=== PATIENT | male | born 1935 | race Caucasian/White ===

== ENCOUNTER → 2016-08-26 | Outpatient (CLI) | payer MEDICARE, BC ==
[2016-08-26 08:17] LABS: APPEARANCE,URINE CLEAR; BILIRUBIN,URINE NEGATIVE (NEGATIVE); GLUCOSE, URINE NEGATIVE (NEGATIVE); KETONES,URINE NEGATIVE (NEGATIVE); LEUKOCYTE ESTERASE,URINE NEGATIVE (NEGATIVE); NITRITE,URINE NEGATIVE (NEGATIVE); PROTEIN,URINE >=500 mg/dL (NEGATIVE); URINE SPECIFIC GRAVITY 1.011; UROBILINOGEN,URINE NEGATIVE mg/dL (<2.0)
[2016-08-26 08:19] LABS: HEMATOCRIT 34.9 % (37.9-51.0); HEMOGLOBIN 11.1 g/dL (13.5-17.0); HGB HCT DIFFERENCE -1.6; MEAN CORPUSCULAR HGB CONC 31.8 g/dL (32.0-36.0); MEAN CORPUSCULAR VOLUME 88 fl (80-97); RED BLOOD COUNT 3.95 10^6/uL (4.35-5.55); RED CELL DISTRIBUTION WIDTH 17.5 % (11.5-14.0); WHITE BLOOD COUNT 4.6 10^3/uL (4.0-10.5)
[2016-08-26 08:47] LABS: ANION GAP 13 (5-19); BLOOD UREA NITROGEN 37 mg/dL (7-20); CALCIUM 8.6 mg/dL (8.4-10.2); CARBON DIOXIDE 23 mmol/L (22-30); CHLORIDE 112 mmol/L (98-107); CREATININE RESULT 2.61 mg/dL (0.52-1.25); GLUCOSE 105 mg/dL (75-110); POTASSIUM 4.3 mmol/L (3.6-5.0)
[2016-08-26 09:23] LABS: BLOOD UREA NITROGEN 37 mg/dL (7-20); CALCIUM 8.6 mg/dL (8.4-10.2); CHLORIDE 112 mmol/L (98-107); CREATININE RESULT 2.61 mg/dL (0.52-1.25); GLUCOSE 105 mg/dL (75-110); POTASSIUM 4.3 mmol/L (3.6-5.0)
[2016-08-26 09:24] LABS: ANION GAP 13 (5-19); CARBON DIOXIDE 23 mmol/L (22-30)
[2016-08-27 11:40] LABS: CREATININE URINE 94.1 mg/dL (Not Estab.)
== END ==
LOC: OD 07:25
PROVIDERS: ATTEND Internal Medicine Cardiovascular Disease
DX: I12.9 Hypertensive chronic kidney disease with stage 1 through stage 4 chronic kidney disease, or unspecified chronic kidney disease (principal); N18.4 Chronic kidney disease, stage 4 (severe); R80.9 Proteinuria, unspecified; E87.5 Hyperkalemia; I48.91 Unspecified atrial fibrillation; Z79.01 Long term (current) use of anticoagulants
CPT/HCPCS: 36415; 80048; 81001; 82570; 84156; 85027

== ENCOUNTER 2016-08-31 05:54 | Inpatient (IN) | payer MEDICARE, BC ==
[2016-08-31 07:10] LABS: ABSOLUTE EOSINOPHILS # (AUTO) 0.1 10^3/uL (0.0-0.6); ABSOLUTE LYMPHOCYTES (AUTO) 0.9 10^3/uL (0.5-4.7); ABSOLUTE MONOCYTES (AUTO) 0.4 10^3/uL (0.1-1.4); ABSOLUTE NEUT (AUTO) 3.5 10^3/uL (1.7-8.2); BASOPHILS % (AUTO) 0.3 % (0-2); EOSINOPHILS % (AUTO) 1.4 % (0-6); HEMATOCRIT 35.2 % (37.9-51.0); HEMOGLOBIN 11.1 g/dL (13.5-17.0); HGB HCT DIFFERENCE -1.9; LYMPHOCYTES % (AUTO) 18.6 % (13-45); MEAN CORPUSCULAR HEMOGLOBIN 28.3 pg (27.0-33.4); MEAN CORPUSCULAR HGB CONC 31.5 g/dL (32.0-36.0); MEAN CORPUSCULAR VOLUME 90 fl (80-97); MONOCYTES % (AUTO) 7.7 % (3-13); RED BLOOD COUNT 3.92 10^6/uL (4.35-5.55); RED CELL DISTRIBUTION WIDTH 18.3 % (11.5-14.0); WHITE BLOOD COUNT 4.9 10^3/uL (4.0-10.5)
[2016-08-31 07:17] LABS: PROTHROMBIN TIME 23.9 SEC (11.4-15.4)
[2016-08-31 07:18] LABS: PARTIAL THROMBOPLASTIN TIME 34.7 SEC (23.5-35.8)
[2016-08-31 07:23] LABS: ALANINE AMINOTRANSFERASE 44 U/L (21-72); ALBUMIN 3.4 g/dL (3.5-5.0); ALKALINE PHOSPHATASE 135 U/L (38-126); ANION GAP 9 (5-19); ASPARTATE AMINO TRANSFERASE 39 U/L (17-59); BILIRUBIN,TOTAL 0.6 mg/dL (0.2-1.3); BLOOD UREA NITROGEN 33 mg/dL (7-20); CARBON DIOXIDE 21 mmol/L (22-30); CHLORIDE 117 mmol/L (98-107); GLUCOSE 101 mg/dL (75-110); POTASSIUM 4.8 mmol/L (3.6-5.0); SODIUM 147.1 mmol/L (137-145); TOTAL PROTEIN 6.4 g/dL (6.3-8.2)
[2016-08-31 07:42] LABS: TROPONIN I 0.057 ng/mL
--- NOTE | 2016-08-31 08:46 | EKG REPORT ---
SEVERITY:- ABNORMAL ECG - ATRIAL FIBRILLATION, V-RATE 88-119 BORDERLINE T ABNORMALITIES, INFERIOR LEADS : Confirmed by: Michi Gregg MD 31-Aug-2016 08:45:06
[2016-08-31] MEDS ORDERED: FUROSEMIDE INJ/PF 40 MG/4 ML SDV IV ONE (08:58)
--- NOTE | 2016-08-31 11:17 | ER Document Report ---
ED General - General Chief Complaint: Shortness Of Breath Stated Complaint: SHORTNESS OF BREATH TRAVEL OUTSIDE OF THE [place] IN LAST 30 DAYS: No - HPI Patient complains to provider of: shortness of breath Notes: Patient coming in for evaluation shortness of breath. Patient has a history of CHF nature fibrillation is on Coumadin. Patient is an ongoing and progressively getting worse over the last week. Denies any fevers chills night sweats productive cough. Patient states approximately one week ago his doctor took him off of his Lasix. Patient states since that time he has gained approximately 8 pounds is having orthopnea nocturnal dyspnea dyspnea on exertion. Patient also has a history of renal insufficiency. - Related Data Allergies/Adverse Reactions: No Known Allergies Allergy (Verified 07/04/16 12:07) Home Medications: Current Home Medications Acetaminophen [Tylenol Extra Strength 500 mg Tablet] 500 mg PO Q8HP PRN [History] Albuterol Sulfate [Proair Respiclick] 1 puff IH Q4HP PRN 08/31/16 [History] Aspirin [Aspirin EC] 81 mg PO DAILY 08/31/16 [History] Cetirizine HCl [Zyrtec 10 mg Tablet] 10 mg PO DAILYP PRN 08/31/16 [History] Cholecalciferol (Vitamin D3) [Vitamin D3 2000 unit Tablet] 2,000 unit PO DAILY 08/31/16 [History] Diphenhydramine HCl [Benadryl 25 mg Capsule] 25 mg PO HSP PRN 08/31/16 [History] Furosemide [Lasix] 40 mg PO DAILY 08/31/16 [History] Nitroglycerin [Nitrostat] 0.4 mg SL Q5MP PRN 08/31/16 [History] [place]-3 Fatty Acids/Fish Oil [Fish Oil 1,000 mg Capsule] 2 each PO DAILY [History] Sodium Bicarbonate [Sodium Bicarbonate 650 mg Tablet] 650 mg PO DAILY 08/31/16 [ History] Warfarin Sodium [Coumadin 2 mg Tablet] 2 mg PO SUTUTHSA@1000 08/31/16 [History] Warfarin Sodium [Coumadin 3 mg Tablet] 3 mg PO MOWEFR@1000 08/31/16 [History] Past Medical History - Social History Smoking Status: Former Smoker Family History: None - Past Medical History Cardiac Medical History: Reports: Hx Atrial Fibrillation, Hx Coronary Artery Disease, Hx Hypertension Denies: Hx Heart Attack Pulmonary Medical History: Reports: Hx COPD, Hx Pneumonia - as a child Denies: Hx Asthma, Hx Bronchitis Neurological Medical History: Denies: Hx Cerebrovascular Accident, Hx Seizures Renal/ Medical History: Denies: Hx Peritoneal Dialysis Musculoskeltal Medical History: Reports Hx Arthritis Past Surgical History: Reports: Hx Appendectomy, Hx Orthopedic Surgery - left shoulder pin placed, left knee surgery - Immunizations Hx Diphtheria, Pertussis, Tetanus Vaccination: No Review of Systems - Review of Systems Constitutional: No symptoms reported EENT: No symptoms reported Cardiovascular: Orthopnea, Dyspnea, Paroxysmal Nocturnal Dysp Respiratory: No symptoms reported Gastrointestinal: No symptoms reported Genitourinary: No symptoms reported Male Genitourinary: No symptoms reported Musculoskeletal: No symptoms reported Skin: No symptoms reported Hematologic/Lymphatic: No symptoms reported Neurological/Psychological: No symptoms reported -: Yes All other systems reviewed and negative Physical Exam - Vital signs Vitals: Resp Pulse Ox 25 H 95 08/31/16 06:01 08/31/16 06:01 Interpretation: Normal - General General appearance: Appears well, Alert - HEENT Head: Normocephalic, Atraumatic Eyes: Normal Pupils: PERRL - Respiratory Respiratory status: No respiratory distress Chest status: Nontender Breath sounds: Rales Chest palpation: Normal - Cardiovascular Rhythm: Regular Heart sounds: Normal auscultation Murmur: No - Abdominal Inspection: Normal Distension: No distension Bowel sounds: Normal Tenderness: Nontender Organomegaly: No organomegaly - Back Back: Normal, Nontender - Extremities General upper extremity: Normal inspection, Nontender, Normal color, Normal ROM , Normal temperature General lower extremity: Normal inspection, Nontender, Edema - Bilateral 2+, Normal color, Normal ROM, Normal temperature, Normal weight bearing. No: Serina' s sign - Neurological Neuro grossly intact: Yes Cognition: Normal Orientation: AAOx4 [place] Coma Scale Eye Opening: Spontaneous [place] Coma Scale Verbal: Oriented [place] Coma Scale Motor: Obeys Commands Ilia Coma Scale Total: 15 Speech: Normal Motor strength normal: LUE, RUE, LLE, RLE Sensory: Normal - Psychological Associated symptoms: Normal affect, Normal mood - Skin Skin Temperature: Warm Skin Moisture: Dry Skin Color: Normal Course - Re-evaluation Re-evalutation: 08/31/16 13:12 Patient's lab work shows normal left leg findings and her baseline much like findings. Patient was given a dose of Lasix had good urinary output a proximal a 500 mL. Upon to been an with patient patient became very tachypnea and did have some mild hypoxia with no oxygen with a saturation of approximately 80%. Patient stated that he did not feel he could go home . Patient will be referred to the hospital service for admission - Vital Signs Vital signs: Temp Pulse Resp BP Pulse Ox 97.5 F 28 H 126/78 H 91 L 08/31/16 11:21 08/31/16 11:01 08/31/16 11:01 08/31/16 11:01 - Laboratory Result Diagrams: 08/31/16 06:54 08/31/16 06:54 Laboratory results interpreted by me: 08/31/16 08/31/16 08/31/16 06:54 06:54 06:54 RBC 3.92 L Hgb 11.1 L Hct 35.2 L MCHC 31.5 L RDW 18.3 H Plt Count 147 L PT 23.9 H Sodium 147.1 H Chloride 117 H Carbon Dioxide 21 L BUN 33 H Creatinine 2.80 H Est GFR ( Amer) 27 L Est GFR (Non-Af Amer) 22 L Alkaline Phosphatase 135 H NT-Pro-B Natriuret Pep Albumin 3.4 L 08/31/16 06:54 RBC Hgb Hct MCHC RDW Plt Count PT Sodium Chloride Carbon Dioxide BUN Creatinine Est GFR ( Amer) Est GFR (Non-Af Amer) Alkaline Phosphatase NT-Pro-B Natriuret Pep 8180 H Albumin Discharge - Discharge Clinical Impression: Peripheral edema CHF exacerbation Qualifiers: Congestive heart failure type: unspecified congestive heart failure type Qualified Code(s): I50.9 - Heart failure, unspecified Condition: Good Disposition: ADMITTED INPATIENT Admitting Provider: Hospitalist Unit Admitted: [facility]
--- NOTE | 2016-08-31 15:04 | PDOC CONSULTATION ---
Consultation Consult Date: 08/31/16 Attending physician:: MIGDALIA ADAMSON Consult reason:: CHF History of Present Illness Admission Date/PCP: 08/31/16 11:15 SHAWN BARNES MD Patient complains of: Shortness of breath and leg edema History of Present Illness: Patient coming in for evaluation shortness of breath. Patient has a history of CHF nature fibrillation is on Coumadin. Patient is an ongoing and progressively getting worse over the last week. Denies any fevers chills night sweats productive cough. Patient states approximately one week ago his doctor took him off of his Lasix. Patient states since that time he has gained approximately 8 pounds is having orthopnea nocturnal dyspnea dyspnea on exertion. Patient also has a history of renal insufficiency. Patient denied any chest pain as such. Patient denied any sustained palpitations, syncope, near syncope. He gives a history of pacemaker placement with battery change out approximately 2 years ago. He denied any recent fever or chills. He denied any productive sputum. This history was reviewed and confirmed. Patient 's at bedside. Past Medical History Cardiac Medical History: Reports: Atrial Fibrillation, Coronary Artery Disease, Hypertension Denies: Myocardial Infarction Pulmonary Medical History: Reports: Chronic Obstructive Pulmonary Disease (COPD) , Pneumonia - as a child Denies: Asthma, Bronchitis Neurological Medical History: Denies: Seizures Musculoskeltal Medical History: Reports: Arthritis Psychiatric Medical History: Reports: Depression Hematology: Denies: Anemia Past Surgical History Past Surgical History: Reports: Appendectomy, Orthopedic Surgery - left shoulder pin placed, left knee surgery, Pacemaker Social History Smoking Status: Former Smoker Cigarettes Packs Per Day: 1 Number of Years Smokin Last Time Smoked: 37 years ago Frequency of Alcohol Use: None Hx Recreational Drug Use: No Drugs: None Hx Prescription Drug Abuse: No - Advance Directive Resuscitation Status: Full Code Family History Family History: None, Reviewed & Not Pertinent Parental Family History Reviewed: Yes Children Family History Reviewed: Yes Sibling(s) Family History Reviewed.: Yes - Negative for premature coronary artery disease or sudden cardiac in the family amongst first degree relatives. Medication/Allergy Home Medications: Acetaminophen [Tylenol Extra Strength 500 mg Tablet] 500 mg PO Q8HP PRN Albuterol Sulfate [Proair Respiclick] 1 puff IH Q4HP PRN 08/31/16 Aspirin [Aspirin EC] 81 mg PO DAILY 08/31/16 Cetirizine HCl [Zyrtec 10 mg Tablet] 10 mg PO DAILYP PRN 08/31/16 Cholecalciferol (Vitamin D3) [Vitamin D3 2000 unit Tablet] 2,000 unit PO DAILY 08/31/16 Diphenhydramine HCl [Benadryl 25 mg Capsule] 25 mg PO HSP PRN 08/31/16 Furosemide [Lasix] 40 mg PO DAILY 08/31/16 Nitroglycerin [Nitrostat] 0.4 mg SL Q5MP PRN 08/31/16 [place]-3 Fatty Acids/Fish Oil [Fish Oil 1,000 mg Capsule] 2 each PO DAILY Sodium Bicarbonate [Sodium Bicarbonate 650 mg Tablet] 650 mg PO DAILY 08/31/16 Warfarin Sodium [Coumadin 2 mg Tablet] 2 mg PO SUTUTHSA@1000 08/31/16 Warfarin Sodium [Coumadin 3 mg Tablet] 3 mg PO MOWEFR@1000 08/31/16 Allergies/Adverse Reactions: No Known Allergies Allergy (Verified 07/04/16 12:07) Review of Systems Review of Systems: Please see history of present illness and past medical history as wall. Constitutional: No fever or chills reported. Head : No recent chronic headaches, recent head injury. Eyes: No recent eye pain, diplopia, redness, discharge, acute visual changes. Ears: No recent chronic ear pain, acute hearing loss, ear discharge. Oral cavity: No recent ulcerations, bleeding, oral cavity discomfort. Neck: No recent acute neck pain reported. Hematologic: No recent easy bruising or bleeding or hematologic malignancy reported. Lymphatic: No recent lymphatic malignancy, chronic lymphadenopathy reported yet Cardiovascular system review: See history of present illness. Increased pedal edema and shortness of breath. Respiratory system review: No recent chronic cough, hemoptysis, blood clots in the lungs reported. Shortness of breath on exertion Gastrointestinal system review: Negative for any recent acute or chronic abdominal pain, hematemesis, melena, recent change in bowel habits. Genitourinary system review: No recent acute or chronic hematuria, flank pain, UTI etc. reported. Skin system review: Negative for any recent abnormal bruising, no rash, no pruritus reported. Neurologic: No prior history of strokes, mini strokes, seizure disorder. Psychologic: No history of major psychosis or depression reported. Musculoskeletal: Minor aches and pains reported. No acute joint swelling reported. Endocrine: No recent polyuria, polydipsia, recent heat or cold intolerance. Physical Exam Vital Signs: Temp Pulse Resp BP Pulse Ox 97.5 F 104 H 18 158/94 H 100 08/31/16 14:09 08/31/16 14:09 08/31/16 14:09 08/31/16 14:09 08/31/16 14:09 Intake & Output 08/30/16 08/31/16 09/01/16 06:59 06:59 06:59 Intake Total 130 Output Total 850 Balance -720 Weight 88.4 kg Exam: GENERAL: well-nourished and in no acute distress. Alert and oriented x3 HEAD: Atraumatic, normocephalic. EYES: Pupils equal round and reactive to light, extraocular movements intact, sclera anicteric, conjunctiva are normal. ENT: TMs normal, nares patent, oropharynx clear without exudates. Moist mucous membranes. No oral ulcerations or bleeding gums noted NECK: supple without lymphadenopathy. Trachea is central. No cervical or axillary lymphadenopathy noted. Carotids are 2+, JVD 10-12 CM LUNGS: Respiration seems nonlabored, no significant accessory muscle action noted. Bibasal a fine crackles noted up to midway up. CHEST: Palpation of the chest wall shows no significant chest wall tenderness. No other significant abnormalities noted. HEART: [place] [employer], No PSH, 1/6 DIANE aortic area, 1/6 priest systolic murmur mitral area, no rubs, no gallops. ABDOMEN: Soft, no significant tenderness appreciated, normoactive bowel sounds. No guarding, no rebound. No rigidity noted . No masses appreciated. EXTREMITIES: Pedal pulses are 1-2+, no calf tenderness noted. No clubbing or cyanosis.2 + pedal edema noted NEUROLOGICAL: Focused neurological exam showed no significant neurologic deficit. Normal speech, no focal weakness appreciated. PSYCH: Normal mood, normal affect. Judgment and insight within normal limits. SKIN: No significant ecchymosis, rash, ulcerations or signs of pruritus noted. MUSCULOSKELETAL EXAM: No significant joint swelling noted. Results EKG Comments: Atrial fibrillation with slightly rapid ventricular response. No acute ST segment changes noted. Impressions: Chest X-Ray 08/31/16 06:41 IMPRESSION: Oral and cardiomegaly with pulmonary vascular congestion. Small bilateral pleural effusions are identified. Other findings as noted above Status: Image reviewed by me - Shows CHF with small bilateral pleural effusion. Pacemaker single-chamber noted on the left side Assessment & Plan - Diagnosis (1) Atrial fibrillation Qualifiers: Qualified Code(s): I48.2 - Chronic atrial fibrillation (2) CHF exacerbation Qualifiers: Qualified Code(s): I50.9 - Heart failure, unspecified (4) CAD (coronary artery disease) Is this a current diagnosis for this admission?: Yes (5) Hypertension Qualifiers: Qualified Code(s): I10 - Essential (primary) hypertension Is this a current diagnosis for this admission?: Yes (6) COPD (chronic obstructive pulmonary disease) Qualifiers: Qualified Code(s): J43.9 - Emphysema, unspecified Is this a current diagnosis for this admission?: Yes (7) Chronic kidney disease Qualifiers: Qualified Code(s): N18.3 - Chronic kidney disease, stage 3 (moderate) Is this a current diagnosis for this admission?: Yes - Notes Notes: Congestive heart failure: Most likely related to fluid overload and diastolic dysfunction. However would need a 2-D echocardiogram to confirm this. Patient seems to have acute on chronic CHF. Patient will benefit from salt and fluid restriction, IV diuretics and optimizing therapy for underlying CHF. Hypertension: Currently blood pressure is satisfactorily controlled. COPD: Currently stable. Continue with current management. Atrial fibrillation: Rate reasonably well controlled. Continue with chronic anticoagulation. Peripheral edema: Mostly related to CHF but patient also seems to have some venous insufficiency. Chronic kidney disease: Patient seems to have at least moderate chronic kidney disease. Patient will benefit from renal ultrasound and possibly nephrology consultation. 2-D echocardiogram shows mild LV systolic dysfunction, RV systolic dysfunction, mild mitral regurgitation, mild aortic incompetence, moderate tricuspid regurgitation with severe pulmonary hypertension. Recommend obtaining ABGs and long-term oxygen therapy if patient can be qualified for it. - Time Time Spent: 30 to 50 Minutes - CODE STATUS was discussed, patient remains full code. Surrogate decision-maker patient's . Multiple medical problems were addressed.More than 50% of the time spent coordinating care, discussing management plans with involved caregivers. Management plans discussed with involved personnels. Medical decision making was of moderate complexity. Medications reviewed and adjusted accordingly: Yes
[2016-08-31] MEDS ORDERED: DIPHENHYDRAMINE HCL 25 MG CAPSULE PO PRN (15:55)
[2016-08-31] MEDS ORDERED: NITROGLYCERIN 0.4 MG/TAB 25 TAB/BOTTLE SL PRN (15:55)
--- NOTE | 2016-08-31 16:14 | XCELERA REPORT ---
[address] [address] Transthoracic Echocardiogram Report Name: LESTER COLEMAN Age: 81 yrs Gender: Male : 1935 Patient Status: Inpatient Patient Location: [id number] Study Date: 08/31/2016 02:33 PM Height: 67 in Weight: 195 lb BSA: 2.0 m2 Procedure: A complete two-dimensional transthoracic echocardiogram was performed (2D, M-mode, spectral and color flow Doppler). The study was technically adequate with some images being suboptimal in quality. Reason For Study: CHF exacerbation Ordering Physician: MIGDALIA ADAMSON Performed By: Tri Miller Interpretation Summary The Ejection Fraction estimate is 45-50% Left ventricular systolic function is mildly reduced. There is mild concentric left ventricular hypertrophy. The left ventricle is grossly normal size. Doppler measurements suggest pseudonormalized left ventricular relaxation, which is associated with grade II/IV or mild to moderate diastolic dysfunction There is mild global hypokinesis of the left ventricle. The right ventricular systolic function is mildly reduced. The right ventricle is mild to moderately dilated. The right ventricle appears to be hypertrophied The right atrium is moderately dilated. The left atrium is severely dilated. There is a mild amount of mitral regurgitation There is no mitral valve stenosis. There is no aortic valve stenosis There is a mild amount of aortic regurgitation There is a moderate amount of tricuspid regurgitation There is servere pulmonary hypertension by echo Best estimated right ventricular systolic pressure is elevated at >60mmHg. Minimal pericardial effusion. The inferior vena cava appeared normal and decreased < 50% with respiration (RAP 10-15 mmHg) MMode/2D Measurements \T\ Calculations RVDd: 4.0 cm LVIDd: 5.2 cm FS: 24.5 % Ao root diam: 3.3 cm IVSd: 1.1 cm LVIDs: 3.9 cm EDV(Teich): LVPWd: 1.0 cm 129.6 ml Ao root area: 8.5 cm2 ESV(Teich): LA dimension: 5.7 cm 67.0 ml EF(Teich): 48.3 % LA A2Cs: LA A4Cs: LA length: 7.0 cmLA Vol Index (BP): 46.4 cm2 40.0 cm2 113.1 ml/m2 LA Volume: 226.3 ml Doppler Measurements \T\ Calculations MV E max smith: MV P1/2t max smith: Ao V2 max: AI max smith: 91.4 cm/sec 90.9 cm/sec 109.2 cm/sec 431.6 cm/sec MV A max smith: MV P1/2t: 36.3 msec Ao max PG: AI max P.3 cm/sec MVA(P1/2t): 6.1 cm2 4.8 mmHg 74.5 mmHg MV E/A: 1.5 MV dec slope: AI dec slope: 734.3 cm/sec2 338.8 cm/sec2 MV dec time: AI P1/2t: 0.12 sec 373.2 msec LV V1 max PG: PA V2 max: TR max smith: 2.0 mmHg 59.8 cm/sec 424.3 cm/sec LV V1 max: PA max P.4 mmHg TR max P.6 cm/sec 72.0 mmHg Left Ventricle The left ventricle is grossly normal size. There is mild concentric left ventricular hypertrophy. Left ventricular systolic function is mildly reduced. The Ejection Fraction estimate is 45-50%. Doppler measurements suggest pseudonormalized left ventricular relaxation, which is associated with grade II/IV or mild to moderate diastolic dysfunction. There is mild global hypokinesis of the left ventricle. Right Ventricle The right ventricle is mild to moderately dilated. The right ventricle appears to be hypertrophied. The right ventricular systolic function is mildly reduced. Atria The right atrium is moderately dilated. The left atrium is severely dilated. Interarterial septum not well visualized and not well dopplered. Cannot comment on ASD/PFO presence. Mitral Valve There is mild mitral leaflet calcification. There is no mitral valve stenosis. There is a mild amount of mitral regurgitation. Aortic Valve The aortic valve is grossly normal. There is no aortic valve stenosis. There is a mild amount of aortic regurgitation. Tricuspid Valve The tricuspid valve is not well visualized, but is grossly normal. There is no tricuspid stenosis. There is a moderate amount of tricuspid regurgitation. There is servere pulmonary hypertension by echo. Best estimated right ventricular systolic pressure is elevated at >60mmHg. Pulmonic Valve The pulmonic valve is not well visualized. Great Vessels The aortic root is not well visualized but is probably normal size. The inferior vena cava appeared normal and decreased < 50% with respiration (RAP 10-15 mmHg). Effusions Minimal pericardial effusion. : MIGDALIA ADAMSON > Johanna Vasquez
--- NOTE | 2016-08-31 16:20 | PDOC H&P ---
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 Bridges Patient complains of: Shortness of breath History of Present Illness: Mr. Cormier is a 81-year-old male with a past medical history of chronic atrial fibrillation with chronic anticoagulation with Coumadin and previous history of congestive heart failure. The patient presented to the emergency department with a chief complaint of shortness of breath. Patient has had i an ongoing and progressively getting worse over the last week. Denies any fevers chills night sweats productive cough. Patient states approximately one week ago his doctor took him off of his Lasix. Patient states since that time he has gained approximately 8 pounds is having orthopnea nocturnal dyspnea dyspnea on exertion. Patient also has a history of renal insufficiency. Patient was given a dose of IV Lasix in the emergency department was referred the hospitalist remission and management. The patient states that his been over year since his last echocardiogram. The patient stated at that time he was told it "looked good". The patient stated that his Lasix was discontinued citing that "there is atheroma hard anymore". MEDICATIONS: The medications listed in this document may have been auto- populated from previous contact and may not been verified or reconciled. This may not be an accurate reflection of the patient's home medication(s); however, authors are unable to edit or delete the medications listed in this document as "home medications". Past Medical History Cardiac Medical History: Reports: Atrial Fibrillation, Coronary Artery Disease, Hypertension Pulmonary Medical History: Reports: Chronic Obstructive Pulmonary Disease (COPD) Renal/ Medical History: Reports: Chronic Kidney Disease - Stage III Musculoskeltal Medical History: Reports: Arthritis Psychiatric Medical History: Reports: Depression Hematology: Denies: Anemia Past Surgical History Past Surgical History: Reports: Appendectomy, Orthopedic Surgery - left shoulder pin placed, left knee surgery, Pacemaker Social History Information Source: Patient Occupation: Retired Lives with: Spouse/Significant other Smoking Status: Former Smoker Cigarettes Packs Per Day: 1 Number of Years Smokin Last Time Smoked: 37 years ago Frequency of Alcohol Use: None Hx Recreational Drug Use: No Drugs: None Hx Prescription Drug Abuse: No - Advance Directive Resuscitation Status: Full Code Surrogate healthcare decision maker:: Family History Family History: None, Reviewed & Not Pertinent Parental Family History Reviewed: Yes Children Family History Reviewed: Yes Sibling(s) Family History Reviewed.: Yes Medication/Allergy Home Medications: Acetaminophen [Tylenol Extra Strength 500 mg Tablet] 500 mg PO Q8HP PRN Albuterol Sulfate [Proair Respiclick] 1 puff IH Q4HP PRN 08/31/16 Aspirin [Aspirin EC] 81 mg PO DAILY 08/31/16 Cetirizine HCl [Zyrtec 10 mg Tablet] 10 mg PO DAILYP PRN 08/31/16 Cholecalciferol (Vitamin D3) [Vitamin D3 2000 unit Tablet] 2,000 unit PO DAILY 08/31/16 Diphenhydramine HCl [Benadryl 25 mg Capsule] 25 mg PO HSP PRN 08/31/16 Furosemide [Lasix] 40 mg PO DAILY 08/31/16 Nitroglycerin [Nitrostat] 0.4 mg SL Q5MP PRN 08/31/16 Zenda-3 Fatty Acids/Fish Oil [Fish Oil 1,000 mg Capsule] 2 each PO DAILY Sodium Bicarbonate [Sodium Bicarbonate 650 mg Tablet] 650 mg PO DAILY 08/31/16 Warfarin Sodium [Coumadin 2 mg Tablet] 2 mg PO SUTUTHSA@1000 08/31/16 Warfarin Sodium [Coumadin 3 mg Tablet] 3 mg PO MOWEFR@1000 08/31/16 Allergies/Adverse Reactions: No Known Allergies Allergy (Verified 07/04/16 12:07) Review of Systems Constitutional: PRESENT: fatigue, weight gain. ABSENT: chills, fever(s), headache(s), weight loss Eyes: ABSENT: visual disturbances Ears: ABSENT: hearing changes Cardiovascular: PRESENT: dyspnea on exertion, edema, orthropnea. ABSENT: chest pain, palpitations Respiratory: PRESENT: cough. ABSENT: hemoptysis Gastrointestinal: ABSENT: abdominal pain, constipation, diarrhea, hematemesis, hematochezia, nausea, vomiting Genitourinary: ABSENT: dysuria, hematuria Musculoskeletal: ABSENT: joint swelling Integumentary: ABSENT: rash, wounds Neurological: ABSENT: abnormal gait, abnormal speech, confusion, dizziness, focal weakness, syncope Psychiatric: ABSENT: anxiety, depression, homidical ideation, suicidal ideation Endocrine: ABSENT: cold intolerance, heat intolerance, polydipsia, polyuria Hematologic/Lymphatic: ABSENT: easy bleeding, easy bruising Physical Exam Vital Signs: Temp Pulse Resp BP Pulse Ox 97.7 F 104 H 16 146/95 H 100 08/31/16 15:13 08/31/16 15:13 08/31/16 15:13 08/31/16 15:13 08/31/16 15:13 Intake & Output 08/29/16 08/30/16 08/31/16 23:59 23:59 23:59 Intake Total 130 Output Total 850 Balance -720 Weight 88.4 kg General appearance: PRESENT: no acute distress, cooperative, well-developed, well-nourished Head exam: PRESENT: atraumatic, normocephalic Eye exam: PRESENT: conjunctiva pink, EOMI, PERRLA. ABSENT: scleral icterus Ear exam: PRESENT: normal external ear exam Mouth exam: PRESENT: moist, tongue midline Neck exam: ABSENT: carotid bruit, JVD, lymphadenopathy, thyromegaly Respiratory exam: PRESENT: clear to auscultation clemente. ABSENT: rales, rhonchi, wheezes Cardiovascular exam: PRESENT: irregular rhythm, tachycardia. ABSENT: diastolic murmur, rubs, systolic murmur Pulses: PRESENT: normal dorsalis pedis pul Vascular exam: PRESENT: normal capillary refill GI/Abdominal exam: PRESENT: normal bowel sounds, soft. ABSENT: distended, guarding, mass, organolmegaly, rebound, tenderness Rectal exam: PRESENT: deferred Extremities exam: PRESENT: full ROM. ABSENT: calf tenderness, clubbing, pedal edema Neurological exam: PRESENT: alert, awake, oriented to person, oriented to place , oriented to time, oriented to situation, CN II-XII grossly intact. ABSENT: motor sensory deficit Psychiatric exam: PRESENT: appropriate affect, normal mood. ABSENT: homicidal ideation, suicidal ideation Skin exam: PRESENT: dry, intact, warm. ABSENT: cyanosis, rash Results Laboratory Results: Labs- Last Values WBC 4.9 10^3/uL (4.0-10.5) 08/31/16 06:54 RBC 3.92 10^6/uL (4.35-5.55) L 08/31/16 06:54 Hgb 11.1 g/dL (13.5-17.0) L 08/31/16 06:54 Hct 35.2 % (37.9-51.0) L 08/31/16 06:54 MCV 90 fl (80-97) 08/31/16 06:54 MCH 28.3 pg (27.0-33.4) 08/31/16 06:54 MCHC 31.5 g/dL (32.0-36.0) L 08/31/16 06:54 RDW 18.3 % (11.5-14.0) H 08/31/16 06:54 Plt Count 147 10^3/uL (150-450) L 08/31/16 06:54 Seg Neutrophils % 72.0 % (42-78) 08/31/16 06:54 Lymphocytes % 18.6 % (13-45) 08/31/16 06:54 Monocytes % 7.7 % (3-13) 08/31/16 06:54 Eosinophils % 1.4 % (0-6) 08/31/16 06:54 Basophils % 0.3 % (0-2) 08/31/16 06:54 Absolute Neutrophils 3.5 10^3/uL (1.7-8.2) 08/31/16 06:54 Absolute Lymphocytes 0.9 10^3/uL (0.5-4.7) 08/31/16 06:54 Absolute Monocytes 0.4 10^3/uL (0.1-1.4) 08/31/16 06:54 Absolute Eosinophils 0.1 10^3/uL (0.0-0.6) 08/31/16 06:54 Absolute Basophils 0.0 10^3/uL (0.0-0.2) 08/31/16 06:54 PT 23.9 SEC (11.4-15.4) H 08/31/16 06:54 INR 2.04 08/31/16 06:54 APTT 34.7 SEC (23.5-35.8) 08/31/16 06:54 Sodium 147.1 mmol/L (137-145) H 08/31/16 06:54 Potassium 4.8 mmol/L (3.6-5.0) 08/31/16 06:54 Chloride 117 mmol/L (98-107) H 08/31/16 06:54 Carbon Dioxide 21 mmol/L (22-30) L 08/31/16 06:54 Anion Gap 9 (5-19) 08/31/16 06:54 BUN 33 mg/dL (7-20) H 08/31/16 06:54 Creatinine 2.80 mg/dL (0.52-1.25) H 08/31/16 06:54 Est GFR ( Amer) 27 (>60) L 08/31/16 06:54 Est GFR (Non-Af Amer) 22 (>60) L 08/31/16 06:54 Glucose 101 mg/dL (75-110) 08/31/16 06:54 Calcium 9.0 mg/dL (8.4-10.2) 08/31/16 06:54 Total Bilirubin 0.6 mg/dL (0.2-1.3) 08/31/16 06:54 Direct Bilirubin 0.0 mg/dL (0.0-0.3) 08/31/16 06:54 AST 39 U/L (17-59) 08/31/16 06:54 ALT 44 U/L (21-72) 08/31/16 06:54 Alkaline Phosphatase 135 U/L (38-126) H 08/31/16 06:54 Troponin I 0.057 ng/mL 08/31/16 06:54 NT-Pro-B Natriuret Pep 8180 pg/mL (<450) H 08/31/16 06:54 Total Protein 6.4 g/dL (6.3-8.2) 08/31/16 06:54 Albumin 3.4 g/dL (3.5-5.0) L 08/31/16 06:54 Impressions: Chest X-Ray 08/31/16 06:41 IMPRESSION: Oral and cardiomegaly with pulmonary vascular congestion. Small bilateral pleural effusions are identified. Other findings as noted above Assessment & Plan - Diagnosis (1) CHF exacerbation Qualifiers: Congestive heart failure type: unspecified congestive heart failure type Qualified Code(s): I50.9 - Heart failure, unspecified Is this a current diagnosis for this admission?: YesPlan: Will obtain echocardiogram given the dramatic change in the patient's symptoms. Will not classify this until echo is obtained. Will admit the patient to continuous IMCU. Will diurese the patient with IV Lasix. Will repeat chemistries in the a.m. Obtain strict intake and output. Will obtain echocardiogram for further classification. Beta bree will be deferred since the patient is richardson until exacerbation has resolved. (2) Acute and chronic respiratory failure with hypoxia Is this a current diagnosis for this admission?: YesPlan: Will continue supplemental O2. Have a this improved with diuresis. (3) Atrial fibrillation Qualifiers: Atrial fibrillation type: chronic Qualified Code(s): I48.2 - Chronic atrial fibrillation Is this a current diagnosis for this admission?: YesPlan: Will consult cardiology. Continue home medications once reconcilable. Patient' s currently rate controlled. INR is therapeutic. (4) CAD (coronary artery disease) Qualifiers: Coronary Disease-Associated Artery/Lesion type: [place] artery Associated angina: angina presence unspecified Is this a current diagnosis for this admission?: Yes (5) COPD (chronic obstructive pulmonary disease) Qualifiers: Emphysema type: unspecified Is this a current diagnosis for this admission?: YesPlan: Will continue home medications. (6) Chronic kidney disease Qualifiers: Chronic kidney disease stage: stage 3 (moderate) Qualified Code(s): N18.3 - Chronic kidney disease, stage 3 (moderate) Is this a current diagnosis for this admission?: YesPlan: The patient is not far from baseline. (7) Hypertension Qualifiers: Hypertension type: essential hypertension Qualified Code(s): I10 - Essential (primary) hypertension Is this a current diagnosis for this admission?: YesPlan: Will continue home medications. - Time Time Spent: 50 to 70 Minutes Medications reviewed and adjusted accordingly: Yes Anticipated discharge: Home Within: within 48 hours - Inpatient Certification Based on my medical assessment, after consideration of the patient's comorbidities, presenting symptoms, or acuity I expect that the services needed warrant INPATIENT care.: Yes I certify that my determination is in accordance with my understanding of Medicare's requirements for reasonable and necessary INPATIENT services [42 CFR 412.3e].: Yes Medical Necessity: Failure to Improve With Outpatient Therapy, Need Close Monitoring Due to Risk of Patient Decompensation, Need For Continuous Telemetry Monitoring, Risk of Complication if Not Cared For in Hospital Post Hospital Care: D/C or Transfer Summary
[2016-08-31] MEDS ORDERED: ACETAMINOPHEN 325 MG TABLET PO PRN (16:45)
[2016-08-31] MEDS: FUROSEMIDE INJ/PF 40 MG/4 ML SDV IV SCH (17:09)
[2016-08-31] MEDS: WARFARIN SODIUM 3 MG TABLET PO SCH (21:28)
[2016-09-01 04:31] LABS: HEMATOCRIT 33.6 % (37.9-51.0); HEMOGLOBIN 10.6 g/dL (13.5-17.0); HGB HCT DIFFERENCE -1.8; MEAN CORPUSCULAR HGB CONC 31.4 g/dL (32.0-36.0); MEAN CORPUSCULAR VOLUME 89 fl (80-97); RED BLOOD COUNT 3.77 10^6/uL (4.35-5.55); RED CELL DISTRIBUTION WIDTH 18.1 % (11.5-14.0); WHITE BLOOD COUNT 4.6 10^3/uL (4.0-10.5)
[2016-09-01 04:54] LABS: ANION GAP 9 (5-19); BLOOD UREA NITROGEN 38 mg/dL (7-20); CALCIUM 8.7 mg/dL (8.4-10.2); CARBON DIOXIDE 23 mmol/L (22-30); CHLORIDE 112 mmol/L (98-107); CREATININE RESULT 3.01 mg/dL (0.52-1.25); GLUCOSE 96 mg/dL (75-110); POTASSIUM 4.7 mmol/L (3.6-5.0); SODIUM 143.8 mmol/L (137-145)
[2016-09-01] MEDS: FUROSEMIDE INJ/PF 40 MG/4 ML SDV IV SCH ×2 (06:05→18:00)
[2016-09-01] MEDS: ASPIRIN 81 MG TABLET, ENT COATED PO SCH (09:03)
[2016-09-01] MEDS: OMEGA-3 ACID ETHYL ESTERS 1 GM CAPSULE PO SCH (09:03)
[2016-09-01] MEDS: CETIRIZINE 10 MG TABLET PO SCH (09:03)
[2016-09-01] MEDS: CHOLECALCIFEROL (D3) 1,000 UNIT TABLET PO SCH (09:04)
[2016-09-01] MEDS: SODIUM BICARBONATE 650 MG TABLET PO SCH (09:04)
[2016-09-01] MEDS ORDERED: (PENDING PHARMACY ID) (Cholecalciferol (Vitamin D3) [Vitamin D3 2000 Unit Tablet] 2,000 UN PO SCH (10:00)
[2016-09-01] MEDS ORDERED: OMEGA PO SCH (10:00)
[2016-09-01] MEDS ORDERED: FISH OIL PO SCH (10:00)
[2016-09-01] MEDS ORDERED: FATTY ACIDS PO SCH (10:00)
--- NOTE | 2016-09-01 11:23 | PDOC PROGRESS REPORT ---
Subjective Progress Note for:: 09/01/16 Subjective:: The patient is currently sitting up in bed. The patient denies any nausea, vomiting, diarrhea, dizziness, chest pain, heart palpitations, fevers, or chills. Patient states that his shortness of breath has improved however he still experiences with exertion. The patient has remained afebrile. Blood pressures have been in a good range. The patient voices no other concerns at this time. Review of systems: The rest of the review of systems is negative. Physical Exam Vital Signs: Temp Pulse Resp BP Pulse Ox 97.6 F 101 H 18 148/84 H 99 09/01/16 07:30 09/01/16 07:30 09/01/16 07:30 09/01/16 07:30 09/01/16 07:30 Intake & Output 08/30/16 08/31/16 09/01/16 23:59 23:59 23:59 Intake Total 604 370 Output Total 1150 1850 Balance -546 -1480 Weight 88.4 kg 89.8 kg General appearance: PRESENT: no acute distress, well-developed, well-nourished Head exam: PRESENT: atraumatic, normocephalic Eye exam: PRESENT: conjunctiva pink, EOMI, PERRLA. ABSENT: scleral icterus Ear exam: PRESENT: normal external ear exam Mouth exam: PRESENT: moist, tongue midline Neck exam: PRESENT: JVD - JVP noted 3 centimeters above the right clavicle.. ABSENT: carotid bruit, lymphadenopathy, thyromegaly Respiratory exam: PRESENT: crackles - Bilateral basal crackles, symmetrical, unlabored. ABSENT: rales, rhonchi, tachypnea, wheezes Cardiovascular exam: PRESENT: diastolic murmur, irregular rhythm, systolic murmur. ABSENT: rubs Pulses: PRESENT: normal dorsalis pedis pul Vascular exam: PRESENT: normal capillary refill GI/Abdominal exam: PRESENT: normal bowel sounds, soft. ABSENT: distended, guarding, mass, organolmegaly, rebound, tenderness Rectal exam: PRESENT: deferred Extremities exam: PRESENT: full ROM. ABSENT: calf tenderness, clubbing, pedal edema Neurological exam: PRESENT: alert, awake, oriented to person, oriented to place , oriented to time, oriented to situation, CN II-XII grossly intact. ABSENT: motor sensory deficit Psychiatric exam: PRESENT: appropriate affect, normal mood. ABSENT: homicidal ideation, suicidal ideation Skin exam: PRESENT: dry, intact, warm. ABSENT: cyanosis, rash Results Laboratory Results: 09/01/16 03:53 09/01/16 03:53 09/01/16 09/01/16 03:53 03:53 WBC 4.6 RBC 3.77 L Hgb 10.6 L Hct 33.6 L MCV 89 MCH 28.0 MCHC 31.4 L RDW 18.1 H Plt Count 136 L Sodium 143.8 Potassium 4.7 Chloride 112 H Carbon Dioxide 23 Anion Gap 9 BUN 38 H Creatinine 3.01 H Est GFR ( Amer) 24 L Est GFR (Non-Af Amer) 20 L Glucose 96 Calcium 8.7 Magnesium 2.0 Impressions: Chest X-Ray 08/31/16 06:41 IMPRESSION: Oral and cardiomegaly with pulmonary vascular congestion. Small bilateral pleural effusions are identified. 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 Will continue to diurese. beta bree will be deferred since the patient is richardson until exacerbation has resolved. (2) Cor pulmonale Is this a current diagnosis for this admission?: Yes (3) Acute and chronic respiratory failure with hypoxia Is this a current diagnosis for this admission?: YesPlan: Improved continue supplemental O2 (4) Atrial fibrillation Qualifiers: Atrial fibrillation type: chronic Qualified Code(s): I48.2 - Chronic atrial fibrillation Is this a current diagnosis for this admission?: YesPlan: Will consult cardiology. Continue home medications. Patient's currently rate controlled. INR is therapeutic. (5) CAD (coronary artery disease) Qualifiers: Coronary Disease-Associated Artery/Lesion type: [place] artery Associated angina: angina presence unspecified Is this a current diagnosis for this admission?: Yes (6) COPD (chronic obstructive pulmonary disease) Qualifiers: Emphysema type: unspecified Is this a current diagnosis for this admission?: YesPlan: Will continue home medications. (7) Chronic kidney disease Qualifiers: Chronic kidney disease stage: stage 3 (moderate) Qualified Code(s): N18.3 - Chronic kidney disease, stage 3 (moderate) Is this a current diagnosis for this admission?: YesPlan: The patient is not far from baseline. (8) Hypertension Qualifiers: Hypertension type: essential hypertension Qualified Code(s): I10 - Essential (primary) hypertension Is this a current diagnosis for this admission?: YesPlan: Will continue home medications. - Time Time Spent with patient: 25-34 minutes Medications reviewed and adjusted accordingly: Yes Anticipated discharge: Home Within: within 48 hours
[2016-09-01] MEDS ORDERED: LISINOPRIL 10 MG TABLET PO ONE (12:15)
--- NOTE | 2016-09-01 14:35 | PDOC PROGRESS REPORT ---
Subjective Progress Note for:: 09/01/16 Subjective:: Patient seems to be doing better with gradual improvement. Pt is denying any chest arm or neck discomfort. Patient denying any PND, orthopnea. Patient denied any sustained palpitations, dizziness, syncope, near syncope. Patient denying any fever chills. Patient denying any other significant discomfort. Patient is maintaining atrial fibrillation. Heart rate seems reasonably well controlled. Review of systems: Rest review of systems negative. Medications: Medications have been reviewed. Physical Exam Vital Signs: Temp Pulse Resp BP Pulse Ox 99.2 F 108 H 18 152/84 H 94 09/01/16 11:49 09/01/16 13:15 09/01/16 11:49 09/01/16 11:49 09/01/16 11:49 Intake & Output 08/31/16 09/01/16 09/02/16 06:59 06:59 06:59 Intake Total 974 Output Total 3000 Balance -2025 Weight 89.8 kg Exam: GENERAL: well-nourished and in no acute distress. Alert and oriented x3 HEAD: Atraumatic, normocephalic. EYES: Pupils equal round and reactive to light, extraocular movements intact, sclera anicteric, conjunctiva are normal. ENT: TMs normal, nares patent, oropharynx clear without exudates. Moist mucous membranes. No oral ulcerations or bleeding gums noted NECK: supple without lymphadenopathy. Trachea is central. No cervical or axillary lymphadenopathy noted. Carotids are 2+, JVD 8-10 CM LUNGS: Respiration seems nonlabored, no significant accessory muscle action noted. Bibasal fine crackles noted. Few bilateral basal wheezes rales or rhonchi noted. No significant dullness noted on percussion. CHEST: Palpation of the chest wall shows no significant chest wall tenderness. No other significant abnormalities noted. HEART: [place] [employer], No PSH, 1/6 DIANE aortic area, 1/6 priest systolic murmur mitral area, no rubs, no gallops. ABDOMEN: Soft, no significant tenderness appreciated, normoactive bowel sounds. No guarding, no rebound. No rigidity noted . No masses appreciated. EXTREMITIES: Pedal pulses are 1-2+, no calf tenderness noted. No clubbing or cyanosis.1+ pedal edema noted NEUROLOGICAL: Focused neurological exam showed no significant neurologic deficit. Normal speech, no focal weakness appreciated. PSYCH: Normal mood, normal affect. Judgment and insight within normal limits. SKIN: No significant ecchymosis, rash, ulcerations or signs of pruritus noted. MUSCULOSKELETAL EXAM: No significant joint swelling noted. Results Laboratory Results: 09/01/16 03:53 09/01/16 03:53 09/01/16 09/01/16 03:53 03:53 WBC 4.6 RBC 3.77 L Hgb 10.6 L Hct 33.6 L MCV 89 MCH 28.0 MCHC 31.4 L RDW 18.1 H Plt Count 136 L Sodium 143.8 Potassium 4.7 Chloride 112 H Carbon Dioxide 23 Anion Gap 9 BUN 38 H Creatinine 3.01 H Est GFR ( Amer) 24 L Est GFR (Non-Af Amer) 20 L Glucose 96 Calcium 8.7 Magnesium 2.0 Impressions: Chest X-Ray 08/31/16 06:41 IMPRESSION: Oral and cardiomegaly with pulmonary vascular congestion. Small bilateral pleural effusions are identified. Other findings as noted above Assessment & Plan - Diagnosis (1) Atrial fibrillation Qualifiers: Atrial fibrillation type: chronic Qualified Code(s): I48.2 - Chronic atrial fibrillation Is this a current diagnosis for this admission?: Yes (2) CHF exacerbation Qualifiers: Qualified Code(s): I50.9 - Heart failure, unspecified Is this a current diagnosis for this admission?: Yes (4) CAD (coronary artery disease) Qualifiers: Coronary Disease-Associated Artery/Lesion type: [place] artery Associated angina: angina presence unspecified Is this a current diagnosis for this admission?: Yes (5) Hypertension Qualifiers: Hypertension type: essential hypertension Qualified Code(s): I10 - Essential (primary) hypertension Is this a current diagnosis for this admission?: Yes (6) COPD (chronic obstructive pulmonary disease) Qualifiers: Emphysema type: unspecified Is this a current diagnosis for this admission?: Yes (7) Chronic kidney disease Qualifiers: Chronic kidney disease stage: stage 3 (moderate) Qualified Code(s): N18.3 - Chronic kidney disease, stage 3 (moderate) Is this a current diagnosis for this admission?: Yes - Notes Notes: Congestive heart failure: Most likely related to fluid overload and diastolic dysfunction. Probable significant contribution from right heart failure because of severe pulmonary hypertension. 2-D echo results reviewed with the patient. Patient seems to have acute on chronic CHF. Patient will benefit from salt and fluid restriction, IV diuretics and optimizing therapy for underlying CHF. Consider changing to by mouth diuretics. Recommend Demadex in this regard because of underlying chronic kidney disease. Hypertension: Currently blood pressure is satisfactorily controlled. COPD: Currently stable. Continue with current management. Atrial fibrillation: Rate reasonably well controlled. Continue with chronic anticoagulation. Peripheral edema: Mostly related to CHF but patient also seems to have some venous insufficiency. Chronic kidney disease: Patient seems to have at least moderate chronic kidney disease. Patient will benefit from renal ultrasound and possibly nephrology consultation. Patient may benefit from nightly oxygen therapy. We will be happy to qualify patient for this reason in through my office. - Time Time with patient: Greater than 35 minutes - CODE STATUS was discussed, patient remains full code. Surrogate decision-maker unchanged. Multiple medical problems were addressed.More than 50% of the time spent coordinating care, discussing management plans with involved caregivers. Management plans discussed with involved personnels. Medical decision making was of moderate to high complexity.
[2016-09-01] MEDS: WARFARIN SODIUM 3 MG TABLET PO SCH (21:14)
[2016-09-02 05:09] LABS: PROTHROMBIN TIME 25.8 SEC (11.4-15.4)
[2016-09-02 05:27] LABS: ANION GAP 12 (5-19); BLOOD UREA NITROGEN 47 mg/dL (7-20); CALCIUM 8.8 mg/dL (8.4-10.2); CARBON DIOXIDE 21 mmol/L (22-30); CHLORIDE 108 mmol/L (98-107); CREATININE RESULT 2.98 mg/dL (0.52-1.25); GLUCOSE 92 mg/dL (75-110); MAGNESIUM 2.1 mg/dL (1.6-2.3); SODIUM 140.6 mmol/L (137-145)
[2016-09-02] MEDS: FUROSEMIDE INJ/PF 40 MG/4 ML SDV IV SCH (05:41)
[2016-09-02 07:13] LABS: BILIRUBIN,URINE NEGATIVE (NEGATIVE); GLUCOSE, URINE NEGATIVE (NEGATIVE); KETONES,URINE NEGATIVE (NEGATIVE); LEUKOCYTE ESTERASE,URINE NEGATIVE (NEGATIVE); NITRITE,URINE NEGATIVE (NEGATIVE); PROTEIN,URINE 30 mg/dL (NEGATIVE); UROBILINOGEN,URINE NEGATIVE mg/dL (<2.0)
[2016-09-02 07:19] LABS: APPEARANCE,URINE CLEAR; URINE SPECIFIC GRAVITY 1.008
--- NOTE | 2016-09-02 08:23 | EKG REPORT ---
SEVERITY:- ABNORMAL ECG - ATRIAL FIBRILLATION LOW VOLTAGE IN FRONTAL LEADS BORDERLINE T ABNORMALITIES, INFERIOR LEADS : Confirmed by: Johanna Vasquez 02-Sep-2016 08:22:38
[2016-09-02] MEDS: CHOLECALCIFEROL (D3) 1,000 UNIT TABLET PO SCH (09:53)
[2016-09-02] MEDS: ASPIRIN 81 MG TABLET, ENT COATED PO SCH (09:53)
[2016-09-02] MEDS: SODIUM BICARBONATE 650 MG TABLET PO SCH (09:53)
[2016-09-02] MEDS: LISINOPRIL 10 MG TABLET PO SCH (09:54)
[2016-09-02] MEDS: OMEGA-3 ACID ETHYL ESTERS 1 GM CAPSULE PO SCH (09:54)
[2016-09-02] MEDS: CETIRIZINE 10 MG TABLET PO SCH (09:54)
[2016-09-02] MEDS ORDERED: TORSEMIDE 20 MG TABLET PO SCH (10:00)
[2016-09-02] MEDS ORDERED: FLUTICASONE/SALMETEROL DISKUS 250-50 MCG/DOSE IH ONE (12:42)
--- NOTE | 2016-09-02 12:42 | PDOC PROGRESS REPORT ---
Subjective Progress Note for:: 09/02/16 Subjective:: The patient is currently sitting up in bed. The patient denies any nausea, vomiting, diarrhea, dizziness, chest pain, heart palpitations, fevers, or chills. Patient states that his shortness of breath is worse than it was yesterday but still better than when he came in. The patient has remained afebrile. Blood pressures have been in a good range. The patient voices no other concerns at this time. Review of systems: The rest of the review of systems is negative. Physical Exam Vital Signs: Temp Pulse Resp BP Pulse Ox 97.5 F 102 H 20 122/85 100 09/02/16 11:42 09/02/16 11:42 09/02/16 11:42 09/02/16 11:42 09/02/16 11:42 Intake & Output 08/31/16 09/01/16 09/02/16 23:59 23:59 23:59 Intake Total 604 1813 1611 Output Total 1150 2550 2200 Balance -546 -737 -589 Weight 88.4 kg 89.8 kg 88.9 kg General appearance: PRESENT: no acute distress, well-developed, well-nourished Head exam: PRESENT: atraumatic, normocephalic Eye exam: PRESENT: conjunctiva pink, EOMI, PERRLA. ABSENT: scleral icterus Ear exam: PRESENT: normal external ear exam Mouth exam: PRESENT: moist, tongue midline Neck exam: PRESENT: JVD - JVP to the right clavicle.. ABSENT: carotid bruit, lymphadenopathy, thyromegaly Respiratory exam: PRESENT: Diminished, symmetrical, unlabored. ABSENT: rales, rhonchi, tachypnea, wheezes Cardiovascular exam: PRESENT: diastolic murmur, irregular rhythm, systolic murmur. ABSENT: rubs Pulses: PRESENT: normal dorsalis pedis pul Vascular exam: PRESENT: normal capillary refill GI/Abdominal exam: PRESENT: normal bowel sounds, soft. ABSENT: distended, guarding, mass, organolmegaly, rebound, tenderness Rectal exam: PRESENT: deferred Extremities exam: PRESENT: full ROM. ABSENT: calf tenderness, clubbing, pedal edema Neurological exam: PRESENT: alert, awake, oriented to person, oriented to place , oriented to time, oriented to situation, CN II-XII grossly intact. ABSENT: motor sensory deficit Psychiatric exam: PRESENT: appropriate affect, normal mood. ABSENT: homicidal ideation, suicidal ideation Skin exam: PRESENT: dry, intact, warm. ABSENT: cyanosis, rash Results Laboratory Results: 09/01/16 03:53 09/02/16 04:15 09/02/16 09/02/16 04:15 06:38 Sodium 140.6 Potassium 5.0 Chloride 108 H Carbon Dioxide 21 L Anion Gap 12 BUN 47 H Creatinine 2.98 H Est GFR ( Amer) 25 L Est GFR (Non-Af Amer) 20 L Glucose 92 Calcium 8.8 Magnesium 2.1 Urine Color STRAW Urine Appearance CLEAR Urine pH 6.0 Ur Specific [place] 1.008 Urine Protein 30 H Urine Glucose (UA) NEGATIVE Urine Ketones NEGATIVE Urine Blood NEGATIVE Urine Nitrite NEGATIVE Ur Leukocyte Esterase NEGATIVE Urine WBC (Auto) 0 Impressions: Chest X-Ray 09/02/16 00:00 IMPRESSION: COPD. No acute findings. 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 Have transitioned over to oral torsemide. Patient notes increasing shortness of breath overnight will obtain chest x-ray and follow. The patient has been started on home medications as per cardiology. (2) Cor pulmonale Is this a current diagnosis for this admission?: Yes (3) Acute and chronic respiratory failure with hypoxia Is this a current diagnosis for this admission?: YesPlan: Will obtain chest x-ray. Patient most likely has underlying COPD. Will consider inhaler. (4) Atrial fibrillation Qualifiers: Atrial fibrillation type: chronic Qualified Code(s): I48.2 - Chronic atrial fibrillation Is this a current diagnosis for this admission?: YesPlan: Continue home medications. Patient's currently rate controlled. INR is therapeutic. (5) CAD (coronary artery disease) Qualifiers: Coronary Disease-Associated Artery/Lesion type: [place] artery Associated angina: angina presence unspecified Is this a current diagnosis for this admission?: Yes (6) COPD (chronic obstructive pulmonary disease) Qualifiers: Emphysema type: unspecified Is this a current diagnosis for this admission?: YesPlan: Will continue home medications. (7) Chronic kidney disease Qualifiers: Chronic kidney disease stage: stage 4 (severe) Qualified Code(s): N18.4 - Chronic kidney disease, stage 4 (severe) Is this a current diagnosis for this admission?: YesPlan: The patient is not far from baseline. (8) Hypertension Qualifiers: Hypertension type: essential hypertension Qualified Code(s): I10 - Essential (primary) hypertension Is this a current diagnosis for this admission?: YesPlan: Will continue home medications. - Time Time Spent with patient: 25-34 minutes Medications reviewed and adjusted accordingly: Yes Anticipated discharge: Home Within: within 24 hours Disposition: The patient is a full code. Pending patient's symptomatology and diagnostic findings will reevaluate in the a.m.
--- NOTE | 2016-09-02 19:17 | PDOC PROGRESS REPORT ---
Subjective Progress Note for:: 09/02/16 Subjective:: Patient seems to be doing better with significant improvement. Pt is denying any chest arm or neck discomfort. Patient denying any PND, orthopnea. Patient denied any sustained palpitations, dizziness, syncope, near syncope. Patient denying any fever chills. Patient denying any other significant discomfort. Patient is maintaining atrial fibrillation. Heart rate seems reasonably well controlled. Review of systems: Rest review of systems negative. Medications: Medications have been reviewed. Physical Exam Vital Signs: Temp Pulse Resp BP Pulse Ox 97.8 F 96 24 H 116/56 L 98 09/02/16 16:00 09/02/16 16:00 09/02/16 16:00 09/02/16 16:00 09/02/16 16:00 Intake & Output 09/01/16 09/02/16 09/03/16 06:59 06:59 06:59 Intake Total 974 3054 1485 Output Total 3000 2900 1850 Balance -2025 154 -365 Weight 89.8 kg 88.9 kg Exam: GENERAL: well-nourished and in no acute distress. Alert and oriented x3 HEAD: Atraumatic, normocephalic. EYES: Pupils equal round and reactive to light, extraocular movements intact, sclera anicteric, conjunctiva are normal. ENT: TMs normal, nares patent, oropharynx clear without exudates. Moist mucous membranes. No oral ulcerations or bleeding gums noted NECK: supple without lymphadenopathy. Trachea is central. No cervical or axillary lymphadenopathy noted. Carotids are 2+, JVD WNL LUNGS: Respiration seems nonlabored, no significant accessory muscle action noted. Breath sounds clear to auscultation bilaterally and equal noted. No wheezes rales or rhonchi noted. No significant dullness noted on percussion. There has been significant improvement in lung exam finding. CHEST: Palpation of the chest wall shows no significant chest wall tenderness. No other significant abnormalities noted. 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 ABDOMEN: Soft, no significant tenderness appreciated, normoactive bowel sounds. No guarding, no rebound. No rigidity noted . No masses appreciated. EXTREMITIES: Pedal pulses are 1-2+, no calf tenderness noted. No clubbing or cyanosis.trace to 1+ pedal edema noted NEUROLOGICAL: Focused neurological exam showed no significant neurologic deficit. Normal speech, no focal weakness appreciated. PSYCH: Normal mood, normal affect. Judgment and insight within normal limits. SKIN: No significant ecchymosis, rash, ulcerations or signs of pruritus noted. MUSCULOSKELETAL EXAM: No significant joint swelling noted. Results Laboratory Results: 09/01/16 03:53 09/02/16 04:15 09/02/16 09/02/16 04:15 06:38 Sodium 140.6 Potassium 5.0 Chloride 108 H Carbon Dioxide 21 L Anion Gap 12 BUN 47 H Creatinine 2.98 H Est GFR ( Amer) 25 L Est GFR (Non-Af Amer) 20 L Glucose 92 Calcium 8.8 Magnesium 2.1 Urine Color STRAW Urine Appearance CLEAR Urine pH 6.0 Ur Specific [place] 1.008 Urine Protein 30 H Urine Glucose (UA) NEGATIVE Urine Ketones NEGATIVE Urine Blood NEGATIVE Urine Nitrite NEGATIVE Ur Leukocyte Esterase NEGATIVE Urine WBC (Auto) 0 Impressions: Chest X-Ray 09/02/16 00:00 IMPRESSION: COPD. No acute findings. Assessment & Plan - Diagnosis (1) Atrial fibrillation Qualifiers: Atrial fibrillation type: chronic Qualified Code(s): I48.2 - Chronic atrial fibrillation Is this a current diagnosis for this admission?: Yes (2) CHF exacerbation Is this a current diagnosis for this admission?: Yes (4) CAD (coronary artery disease) Qualifiers: Coronary Disease-Associated Artery/Lesion type: [place] artery Associated angina: angina presence unspecified Is this a current diagnosis for this admission?: Yes (5) Hypertension Qualifiers: Hypertension type: essential hypertension Qualified Code(s): I10 - Essential (primary) hypertension Is this a current diagnosis for this admission?: Yes (6) COPD (chronic obstructive pulmonary disease) Qualifiers: Emphysema type: unspecified Is this a current diagnosis for this admission?: Yes (7) Chronic kidney disease Qualifiers: Chronic kidney disease stage: stage 4 (severe) Qualified Code(s): N18.4 - Chronic kidney disease, stage 4 (severe) Is this a current diagnosis for this admission?: Yes - Notes Notes: Congestive heart failure: Most likely related to fluid overload and diastolic dysfunction. Probable significant contribution from right heart failure because of severe pulmonary hypertension. 2-D echo results reviewed with the patient. Patient seems to have acute on chronic CHF. Patient will benefit from salt and fluid restriction, IV diuretics and optimizing therapy for underlying CHF. Consider changing to by mouth diuretics. Recommend Demadex in this regard because of underlying chronic kidney disease. This was discussed with hospitalist. Feel patient is almost ready for discharge and will certainly be ready by tomorrow a.m. Hypertension: Currently blood pressure is satisfactorily controlled. COPD: Currently stable. Continue with current management. Atrial fibrillation: Rate reasonably well controlled. Continue with chronic anticoagulation. Peripheral edema: Mostly related to CHF but patient also seems to have some venous insufficiency. Chronic kidney disease: Patient seems to have at least moderate chronic kidney disease. Patient will benefit from renal ultrasound and possibly nephrology consultation. Patient may benefit from nightly oxygen therapy. We will be happy to qualify patient for this reason in through my office. - Time Time with patient: 15-25 minutes - CODE STATUS was discussed, patient remains full code. Surrogate decision-maker unchanged. Multiple medical problems were addressed.More than 50% of the time spent coordinating care, discussing management plans with involved caregivers. Management plans discussed with involved personnels. Medical decision making was of moderate complexity.
[2016-09-02] MEDS: FLUTICASONE/SALMETEROL DISKUS 250-50 MCG/DOSE IH SCH (21:28)
[2016-09-02] MEDS: WARFARIN SODIUM 3 MG TABLET PO SCH (21:28)
[2016-09-03 05:34] LABS: PROTHROMBIN TIME 25.1 SEC (11.4-15.4)
[2016-09-03 05:41] LABS: ANION GAP 12 (5-19); BLOOD UREA NITROGEN 55 mg/dL (7-20); CARBON DIOXIDE 20 mmol/L (22-30); CHLORIDE 107 mmol/L (98-107); CREATININE RESULT 3.26 mg/dL (0.52-1.25); GLUCOSE 96 mg/dL (75-110); MAGNESIUM 2.2 mg/dL (1.6-2.3); POTASSIUM 4.7 mmol/L (3.6-5.0); SODIUM 139.4 mmol/L (137-145)
[2016-09-03] MEDS: FLUTICASONE/SALMETEROL DISKUS 250-50 MCG/DOSE IH SCH ×2 (09:15→22:18)
[2016-09-03] MEDS: OMEGA-3 ACID ETHYL ESTERS 1 GM CAPSULE PO SCH (09:28)
[2016-09-03] MEDS: CHOLECALCIFEROL (D3) 1,000 UNIT TABLET PO SCH (09:28)
[2016-09-03] MEDS: SODIUM BICARBONATE 650 MG TABLET PO SCH (09:28)
[2016-09-03] MEDS: ASPIRIN 81 MG TABLET, ENT COATED PO SCH (09:29)
[2016-09-03] MEDS: LISINOPRIL 10 MG TABLET PO SCH (09:29)
[2016-09-03] MEDS: CETIRIZINE 10 MG TABLET PO SCH (09:29)
[2016-09-03] MEDS: ALBUTEROL SULFATE HFA (90 MCG/PUFF) 200 PUFF/8.5 GM MDI IH PRN ×3 (09:30→22:18)
--- NOTE | 2016-09-03 12:43 | PDOC PROGRESS REPORT ---
Subjective Progress Note for:: 09/03/16 Subjective:: Patient was seen on morning rounds. He is resting comfortably in bed, his is at the bedside. He is presently not on oxygen. He states his breathing is greatly improved since admission. He does have some mild dyspnea with exertion , but no longer at rest. He denies any chest pain, palpitations or dyspnea. Denies nausea, vomiting or abdominal pain. He voices no other concerns at the present time. He states he'll try and increase his activity today for hopeful discharge in the morning. Physical Exam Vital Signs: Temp Pulse Resp BP Pulse Ox 97.4 F 96 20 103/67 99 09/03/16 11:13 09/03/16 11:13 09/03/16 11:13 09/03/16 11:13 09/03/16 11:13 Intake & Output 09/02/16 09/03/16 09/04/16 06:59 06:59 06:59 Intake Total 3054 2571 Output Total 2900 3600 Balance 154 -1029 Weight 88.9 kg 87.9 kg General appearance: PRESENT: no acute distress, well-developed, well-nourished Head exam: PRESENT: atraumatic, normocephalic Eye exam: PRESENT: conjunctiva pink, EOMI, PERRLA. ABSENT: scleral icterus Ear exam: PRESENT: normal external ear exam Mouth exam: PRESENT: moist, tongue midline Neck exam: ABSENT: carotid bruit, JVD, lymphadenopathy, thyromegaly Respiratory exam: PRESENT: clear to auscultation clement[place]. ABSENT: rales, rhonchi, wheezes Cardiovascular exam: PRESENT: RRR. ABSENT: diastolic murmur, rubs, systolic murmur Pulses: PRESENT: normal dorsalis pedis pul Vascular exam: PRESENT: normal capillary refill GI/Abdominal exam: PRESENT: normal bowel sounds, soft. ABSENT: distended, guarding, mass, organolmegaly, rebound, tenderness Rectal exam: PRESENT: deferred Extremities exam: PRESENT: full ROM. ABSENT: calf tenderness, clubbing, pedal edema Neurological exam: PRESENT: alert, awake, oriented to person, oriented to place , oriented to time, oriented to situation, CN II-XII grossly intact. ABSENT: motor sensory deficit Psychiatric exam: PRESENT: appropriate affect, normal mood. ABSENT: homicidal ideation, suicidal ideation Skin exam: PRESENT: dry, intact, warm. ABSENT: cyanosis, rash Results Laboratory Results: 09/01/16 03:53 09/03/16 05:01 09/03/16 05:01 Sodium 139.4 Potassium 4.7 Chloride 107 Carbon Dioxide 20 L Anion Gap 12 BUN 55 H Creatinine 3.26 H Est GFR ( Amer) 22 L Est GFR (Non-Af Amer) 18 L Glucose 96 Calcium 9.0 Magnesium 2.2 Impressions: Chest X-Ray 09/02/16 00:00 IMPRESSION: COPD. No acute findings. Assessment & Plan - Diagnosis (1) Acute and chronic respiratory failure with hypoxia Is this a current diagnosis for this admission?: YesPlan: This has resolved with diuresis. Patient's weight is down 10 lbs. 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 Will hold Torsemide today due to increase Bun/Cr. Follow in the am. Patient has history of CKD IV (3) Atrial fibrillation Qualifiers: Atrial fibrillation type: chronic Qualified Code(s): I48.2 - Chronic atrial fibrillation Is this a current diagnosis for this admission?: YesPlan: Continue medications and warfarin. Therapeutic INR (4) Chronic kidney disease Qualifiers: Chronic kidney disease stage: stage 4 (severe) Qualified Code(s): N18.4 - Chronic kidney disease, stage 4 (severe) Is this a current diagnosis for this admission?: YesPlan: Patient with slight increase in BUN/Cr today. Will hold Torsemide and repeat in the am (5) COPD (chronic obstructive pulmonary disease) Qualifiers: Emphysema type: unspecified Is this a current diagnosis for this admission?: YesPlan: Continue inhalers and nebulizers prn (6) Hypertension Qualifiers: Hypertension type: essential hypertension Qualified Code(s): I10 - Essential (primary) hypertension Is this a current diagnosis for this admission?: YesPlan: Presently normotensive - Time Time Spent with patient: 25-34 minutes Critical Time spent with patient: 15-24 minutes Medications reviewed and adjusted accordingly: Yes Anticipated discharge: Home
[2016-09-03] MEDS ORDERED: MAG CARB/AL HYDROX/ALGINIC AC 355 ML BOTTLE PO PRN (16:09)
[2016-09-03] MEDS: FAMOTIDINE 20 MG TABLET PO SCH (22:18)
[2016-09-03] MEDS: WARFARIN SODIUM 3 MG TABLET PO SCH (22:18)
--- NOTE | 2016-09-03 22:34 | PDOC PROGRESS REPORT ---
Subjective Progress Note for:: 09/03/16 Subjective:: Patient seems to be doing better with significant improvement. Pt is denying any chest arm or neck discomfort. Patient denying any PND, orthopnea. Patient denied any sustained palpitations, dizziness, syncope, near syncope. Patient denying any fever chills. Patient denying any other significant discomfort. Patient is maintaining atrial fibrillation. Heart rate seems reasonably well controlled. Review of systems: Rest review of systems negative. Medications: Medications have been reviewed. Physical Exam Vital Signs: Temp Pulse Resp BP Pulse Ox 98.3 F 99 18 119/48 L 98 09/03/16 15:42 09/03/16 15:42 09/03/16 15:42 09/03/16 15:42 09/03/16 15:42 Intake & Output 09/02/16 09/03/16 09/04/16 06:59 06:59 06:59 Intake Total 3054 2571 1435 Output Total 2900 3600 1950 Balance 154 -1029 -515 Weight 88.9 kg 87.9 kg Exam: GENERAL: well-nourished and in no acute distress. Alert and oriented x3 HEAD: Atraumatic, normocephalic. EYES: Pupils equal round and reactive to light, extraocular movements intact, sclera anicteric, conjunctiva are normal. ENT: TMs normal, nares patent, oropharynx clear without exudates. Moist mucous membranes. No oral ulcerations or bleeding gums noted NECK: supple without lymphadenopathy. Trachea is central. No cervical or axillary lymphadenopathy noted. Carotids are 2+, JVD WNL LUNGS: Respiration seems nonlabored, no significant accessory muscle action noted. Breath sounds clear to auscultation bilaterally and equal noted. No wheezes rales or rhonchi noted. No significant dullness noted on percussion. CHEST: Palpation of the chest wall shows no significant chest wall tenderness. No other significant abnormalities noted. 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 ABDOMEN: Soft, no significant tenderness appreciated, normoactive bowel sounds. No guarding, no rebound. No rigidity noted . No masses appreciated. EXTREMITIES: Pedal pulses are 1-2+, no calf tenderness noted. No clubbing or cyanosis.trace to 1+ pedal edema noted NEUROLOGICAL: Focused neurological exam showed no significant neurologic deficit. Normal speech, no focal weakness appreciated. PSYCH: Normal mood, normal affect. Judgment and insight within normal limits. SKIN: No significant ecchymosis, rash, ulcerations or signs of pruritus noted. MUSCULOSKELETAL EXAM: No significant joint swelling noted. Results Laboratory Results: 09/01/16 03:53 09/03/16 05:01 09/03/16 09/03/16 05:01 15:28 Sodium 139.4 Potassium 4.7 Chloride 107 Carbon Dioxide 20 L Anion Gap 12 BUN 55 H Creatinine 3.26 H Est GFR ( Amer) 22 L Est GFR (Non-Af Amer) 18 L Glucose 96 Calcium 9.0 Magnesium 2.2 Stool Occult Blood NEGATIVE Impressions: Chest X-Ray 09/02/16 00:00 IMPRESSION: COPD. No acute findings. Assessment & Plan - Diagnosis (1) Atrial fibrillation Qualifiers: Atrial fibrillation type: chronic Qualified Code(s): I48.2 - Chronic atrial fibrillation Is this a current diagnosis for this admission?: Yes (2) CHF exacerbation Is this a current diagnosis for this admission?: Yes (4) CAD (coronary artery disease) Qualifiers: Coronary Disease-Associated Artery/Lesion type: [place] artery Associated angina: angina presence unspecified Is this a current diagnosis for this admission?: Yes (5) Hypertension Qualifiers: Hypertension type: essential hypertension Qualified Code(s): I10 - Essential (primary) hypertension Is this a current diagnosis for this admission?: Yes (6) COPD (chronic obstructive pulmonary disease) Qualifiers: Emphysema type: unspecified Is this a current diagnosis for this admission?: Yes (7) Chronic kidney disease Qualifiers: Chronic kidney disease stage: stage 4 (severe) Qualified Code(s): N18.4 - Chronic kidney disease, stage 4 (severe) Is this a current diagnosis for this admission?: Yes - Notes Notes: Congestive heart failure: Most likely related to fluid overload and diastolic dysfunction. Probable significant contribution from right heart failure because of severe pulmonary hypertension. 2-D echo results reviewed with the patient. Patient seems to have acute on chronic CHF. Patient will benefit from salt and fluid restriction, IV diuretics and optimizing therapy for underlying CHF. Consider changing to by mouth diuretics. Recommend Demadex in this regard because of underlying chronic kidney disease. This was discussed with hospitalist. Patient has tolerated by mouth torsemide. He was encouraged to ambulate today. If he does well he can be discharged either later on today or tomorrow morning.. Hypertension: Currently blood pressure is satisfactorily controlled. COPD: Currently stable. Continue with current management. Atrial fibrillation: Rate reasonably well controlled. Continue with chronic anticoagulation. Peripheral edema: Mostly related to CHF but patient also seems to have some venous insufficiency. This has significantly improved with diuretic therapy Chronic kidney disease: Patient seems to have at least moderate chronic kidney disease. Patient may benefit from nightly oxygen therapy. We will be happy to qualify patient for this reason in through my office. - Time Time with patient: 15-25 minutes - CODE STATUS was discussed, patient remains full code. Surrogate decision-maker unchanged. Multiple medical problems were addressed.More than 50% of the time spent coordinating care, discussing management plans with involved caregivers. Management plans discussed with involved personnels. Medical decision making was of moderate complexity. Patient has been stable from Cardec standpoint for several days. Therefore we will sign off Medications reviewed and adjusted accordingly: Yes
[2016-09-04 05:42] LABS: PROTHROMBIN TIME 26.3 SEC (11.4-15.4)
[2016-09-04 05:44] LABS: ANION GAP 12 (5-19); BLOOD UREA NITROGEN 60 mg/dL (7-20); CALCIUM 8.9 mg/dL (8.4-10.2); CARBON DIOXIDE 20 mmol/L (22-30); CHLORIDE 110 mmol/L (98-107); CREATININE RESULT 3.12 mg/dL (0.52-1.25); GLUCOSE 98 mg/dL (75-110); SODIUM 142.2 mmol/L (137-145)
[2016-09-04 10:15] VITALS: BP 158/94
[2016-09-04] MEDS: CHOLECALCIFEROL (D3) 1,000 UNIT TABLET PO SCH (10:32)
[2016-09-04] MEDS: FAMOTIDINE 20 MG TABLET PO SCH (10:33)
[2016-09-04] MEDS: SODIUM BICARBONATE 650 MG TABLET PO SCH (10:33)
[2016-09-04] MEDS: LISINOPRIL 10 MG TABLET PO SCH (10:33)
[2016-09-04] MEDS: ASPIRIN 81 MG TABLET, ENT COATED PO SCH (10:34)
[2016-09-04] MEDS: OMEGA-3 ACID ETHYL ESTERS 1 GM CAPSULE PO SCH (10:34)
[2016-09-04] MEDS: CETIRIZINE 10 MG TABLET PO SCH (10:34)
[2016-09-04] MEDS: FLUTICASONE/SALMETEROL DISKUS 250-50 MCG/DOSE IH SCH (10:36)
--- NOTE | 2016-09-04 13:27 | PDOC DISCHARGE SUMMARY ---
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) Is this a current diagnosis for this admission?: YesSummary: Resolved with diuresis and medication adjustment (3) Atrial fibrillation Is this a current diagnosis for this admission?: Yes (4) Chronic kidney disease Is this a current diagnosis for this admission?: YesSummary: Creatinine back to 2.1, he follows with Dr Quinonez (5) COPD (chronic obstructive pulmonary disease) Is this a current diagnosis for this admission?: YesSummary: Continue Advair inhaler and prn albuterol (6) Hypertension Is this a current diagnosis for this admission?: YesSummary: Blood pressure is normotensive with adjustment of medications - Additional Information Resuscitation Status: Full Code Discharge Diet: Cardiac Discharge Activity: Activity As Tolerated, Balance Activity w/Rest, Weigh Daily Home Medications: Acetaminophen [Tylenol Extra Strength 500 mg Tablet] 500 mg PO Q8HP PRN Albuterol Sulfate [Proair Respiclick] 1 puff IH Q4HP PRN 08/31/16 Aspirin [Aspirin EC] 81 mg PO DAILY 08/31/16 Cetirizine HCl [Zyrtec 10 mg Tablet] 10 mg PO DAILYP PRN 08/31/16 Cholecalciferol (Vitamin D3) [Vitamin D3 2000 unit Tablet] 2,000 unit PO DAILY 08/31/16 Diphenhydramine HCl [Benadryl 25 mg Capsule] 25 mg PO HSP PRN 08/31/16 Nitroglycerin [Nitrostat] 0.4 mg SL Q5MP PRN 08/31/16 [facility]-3 Fatty Acids/Fish Oil [Fish Oil 1,000 mg Capsule] 2 each PO DAILY Sodium Bicarbonate [Sodium Bicarbonate 650 mg Tablet] 650 mg PO DAILY 08/31/16 Warfarin Sodium [Coumadin 2 mg Tablet] 2 mg PO SUTUTHSA@1000 08/31/16 Warfarin Sodium [Coumadin 3 mg Tablet] 3 mg PO MOWEFR@1000 08/31/16 Fluticasone/Salmeterol [Advair 250-50 Diskus 14 Dose/Diskus] 1 inh IH Q12 #1 inhaler 09/04/16 Lisinopril [Prinivil 10 mg Tablet] 10 mg PO DAILY #30 tablet 09/04/16 Torsemide [Demadex 20 mg Tablet] 20 mg PO DAILY #30 tablet 09/04/16 History of Present Illness Patient complains of: Increasing shortness of breath and weight gain over one week History of Present Illness: LESTER COLEMAN is a 81 year old male who presented to [facility] on 05/2017, with complaints of increasing shortness of breath and 10 pound weight gain over the past week. Patient has a past medical history of chronic anticoagulation on Coumadin for A. fib and previous history of congestive heart failure. He states he was progressively getting more short of breath at home over the last week. 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 Since that time he is been increasingly more short of breath and gaining weight. Patient presented via EMS this evening because he will awoke from sleep extremely dyspneic. Patient was diuresed by emergency room physician and referred to the hospitalist for admission. Hospital Course Hospital Course: Patient was admitted to [facility] on telemetry. He was noted to have elevated blood pressure as well. Dr. Vasquez, was consulted for cardiology. He changed paces patient's diuretic torsemide from Lasix. Patient was also given Advair inhaler due to wheezing. Dr. Vasquez also added lisinopril for better blood pressure management in his chronic systolic and diastolic heart failure management. Patient was diuresed for the next several days. His weight is now down to his dry weight. He feels much improved. He is off oxygen therapy. He feels ready for discharge Physical Exam Vital Signs: Temp Pulse Resp BP Pulse Ox 97.1 F 96 14 158/94 H 99 09/04/16 10:01 09/04/16 10:01 09/04/16 10:01 09/04/16 10:01 09/04/16 10:01 Intake & Output 09/03/16 09/04/16 09/05/16 06:59 06:59 06:59 Intake Total 8001 1570 715 Output Total 3600 2650 Balance -1029 -1080 715 Weight 87.9 kg 86.8 kg General appearance: PRESENT: no acute distress, well-developed, well-nourished Head exam: PRESENT: atraumatic, normocephalic Eye exam: PRESENT: conjunctiva pink, EOMI, PERRLA. ABSENT: scleral icterus Ear exam: PRESENT: normal external ear exam Mouth exam: PRESENT: moist, tongue midline Neck exam: ABSENT: carotid bruit, JVD, lymphadenopathy, thyromegaly Respiratory exam: PRESENT: clear to auscultation clemente, symmetrical, unlabored Cardiovascular exam: PRESENT: irregular rhythm, +S1, +S2 Pulses: PRESENT: normal dorsalis pedis pul Vascular exam: PRESENT: normal capillary refill GI/Abdominal exam: PRESENT: normal bowel sounds, soft. ABSENT: distended, guarding, mass, organolmegaly, rebound, tenderness Rectal exam: PRESENT: deferred Extremities exam: PRESENT: full ROM. ABSENT: calf tenderness, clubbing, pedal edema Neurological exam: PRESENT: alert, awake, oriented to person, oriented to place , oriented to time, oriented to situation, CN II-XII grossly intact. ABSENT: motor sensory deficit Psychiatric exam: PRESENT: appropriate affect, normal mood. ABSENT: homicidal ideation, suicidal ideation Skin exam: PRESENT: dry, intact, warm. ABSENT: cyanosis, rash Results Laboratory Results: 09/01/16 03:53 09/04/16 04:31 09/03/16 09/04/16 15:28 04:31 Sodium 142.2 Potassium 5.0 Chloride 110 H Carbon Dioxide 20 L Anion Gap 12 BUN 60 H Creatinine 3.12 H Est GFR ( Amer) 23 L Est GFR (Non-Af Amer) 19 L Glucose 98 Calcium 8.9 Stool Occult Blood NEGATIVE Impressions: Chest X-Ray 09/02/16 00:00 IMPRESSION: COPD. No acute findings. Qualifiers PATEINT BEING DISCHARGED WITH ANY OF THE FOLLOWING DIAGNOSIS?: Heart Failure HF Pt being discharged on ACEI for LVEF less than 40%?: Yes HF Pt with Afib discharged with Warfarin?: Yes Plan Discharge Plan: Home with , with appropriate follow up with cardiology, nephrology and primary care providers.
== END 2016-09-04 11:09 | disposition home or self-care (01) | DRG 291 ==
LOC: ER 05:54 → EH 11:15 → UNDOADMIN 11:45 → 3W 14:07
DX: I13.0 Hypertensive heart and chronic kidney disease with heart failure and stage 1 through stage 4 chronic kidney disease, or unspecified chronic kidney disease (principal); I50.43 Acute on chronic combined systolic (congestive) and diastolic (congestive) heart failure; J96.21 Acute and chronic respiratory failure with hypoxia; N18.4 Chronic kidney disease, stage 4 (severe); M19.90 Unspecified osteoarthritis, unspecified site; F32.9 Major depressive disorder, single episode, unspecified; I48.2 Chronic atrial fibrillation; I25.10 Atherosclerotic heart disease of native coronary artery without angina pectoris; J43.9 Emphysema, unspecified; I07.1 Rheumatic tricuspid insufficiency; I27.2 Other secondary pulmonary hypertension; I87.2 Venous insufficiency (chronic) (peripheral); I27.81 Cor pulmonale (chronic); Z79.01 Long term (current) use of anticoagulants; Z90.49 Acquired absence of other specified parts of digestive tract; Z87.891 Personal history of nicotine dependence; Z79.82 Long term (current) use of aspirin; Z79.899 Other long term (current) drug therapy
CPT/HCPCS: 36415; 71020; 80048; 80053; 81001; 82272; 83735; 83880; 84484; 85025; 85027; 85610; 85730; 93005; 93010; 93306; 96374; 99285; J1940; J3490

== ENCOUNTER → 2016-09-09 | Outpatient (CLI) | payer MEDICARE, BC ==
[2016-09-09 09:51] LABS: PROTHROMBIN TIME 30.9 SEC (11.4-15.4)
== END ==
LOC: OD 08:29
PROVIDERS: ATTEND Internal Medicine
DX: I48.0 Paroxysmal atrial fibrillation (principal)
CPT/HCPCS: 36415; 85610

== ENCOUNTER → 2016-11-04 | Outpatient (CLI) | payer MEDICARE, BC ==
[2016-11-04 08:59] LABS: HEMATOCRIT 36.4 % (37.9-51.0); HGB HCT DIFFERENCE -0.4; MEAN CORPUSCULAR HEMOGLOBIN 28.7 pg (27.0-33.4); MEAN CORPUSCULAR HGB CONC 32.9 g/dL (32.0-36.0); MEAN CORPUSCULAR VOLUME 87 fl (80-97); RED BLOOD COUNT 4.17 10^6/uL (4.35-5.55); RED CELL DISTRIBUTION WIDTH 17.7 % (11.5-14.0)
[2016-11-04 09:19] LABS: ANION GAP 15 (5-19); BLOOD UREA NITROGEN 55 mg/dL (7-20); CARBON DIOXIDE 21 mmol/L (22-30); CHLORIDE 111 mmol/L (98-107); CREATININE RESULT 3.36 mg/dL (0.52-1.25); GLUCOSE 107 mg/dL (75-110); POTASSIUM 4.7 mmol/L (3.6-5.0); SODIUM 146.9 mmol/L (137-145)
[2016-11-04 09:35] LABS: APPEARANCE,URINE CLEAR; BILIRUBIN,URINE NEGATIVE (NEGATIVE); GLUCOSE, URINE NEGATIVE (NEGATIVE); KETONES,URINE NEGATIVE (NEGATIVE); LEUKOCYTE ESTERASE,URINE NEGATIVE (NEGATIVE); NITRITE,URINE NEGATIVE (NEGATIVE); PROTEIN,URINE 30 mg/dL (NEGATIVE); URINE SPECIFIC GRAVITY 1.008; UROBILINOGEN,URINE NEGATIVE mg/dL (<2.0)
[2016-11-05 12:38] LABS: CREATININE URINE 46.5 mg/dL (Not Estab.)
== END ==
LOC: OD 08:18
PROVIDERS: ATTEND Internal Medicine Nephrology
DX: I12.9 Hypertensive chronic kidney disease with stage 1 through stage 4 chronic kidney disease, or unspecified chronic kidney disease (principal); N18.4 Chronic kidney disease, stage 4 (severe); R80.9 Proteinuria, unspecified; E87.5 Hyperkalemia
CPT/HCPCS: 36415; 80048; 81001; 82570; 84156; 85027

== ENCOUNTER → 2016-12-31 | Outpatient (CLI) | payer MEDICARE, BC ==
[2016-12-31 08:50] LABS: HEMATOCRIT 43.9 % (37.9-51.0); HGB HCT DIFFERENCE -1.9; MEAN CORPUSCULAR HEMOGLOBIN 28.5 pg (27.0-33.4); MEAN CORPUSCULAR HGB CONC 31.8 g/dL (32.0-36.0); MEAN CORPUSCULAR VOLUME 89 fl (80-97); RED BLOOD COUNT 4.91 10^6/uL (4.35-5.55); RED CELL DISTRIBUTION WIDTH 17.7 % (11.5-14.0)
[2016-12-31 08:57] LABS: APPEARANCE,URINE CLEAR; BILIRUBIN,URINE NEGATIVE (NEGATIVE); GLUCOSE, URINE NEGATIVE (NEGATIVE); KETONES,URINE NEGATIVE (NEGATIVE); LEUKOCYTE ESTERASE,URINE NEGATIVE (NEGATIVE); NITRITE,URINE NEGATIVE (NEGATIVE); PROTEIN,URINE 30 mg/dL (NEGATIVE); URINE SPECIFIC GRAVITY 1.008; UROBILINOGEN,URINE NEGATIVE mg/dL (<2.0)
[2016-12-31 09:17] LABS: ANION GAP 12 (5-19); BLOOD UREA NITROGEN 62 mg/dL (7-20); CALCIUM 9.2 mg/dL (8.4-10.2); CARBON DIOXIDE 25 mmol/L (22-30); CHLORIDE 106 mmol/L (98-107); CREATININE RESULT 3.32 mg/dL (0.52-1.25); GLUCOSE 100 mg/dL (75-110); POTASSIUM 5.9 mmol/L (3.6-5.0); SODIUM 143.3 mmol/L (137-145)
[2016-12-31 09:32] LABS: URINE CREATININE 61.5 mg/dL (22-328); URINE PROTEIN 56.3 mg/dL (<12)
== END ==
LOC: OD 07:34
PROVIDERS: ATTEND Internal Medicine Nephrology
DX: I12.9 Hypertensive chronic kidney disease with stage 1 through stage 4 chronic kidney disease, or unspecified chronic kidney disease (principal); N18.4 Chronic kidney disease, stage 4 (severe); R80.9 Proteinuria, unspecified
CPT/HCPCS: 36415; 80048; 81001; 82570; 84156; 85027

== ENCOUNTER → 2017-01-02 | Outpatient (CLI) | payer MEDICARE, BC | LOC: OD 08:01 | PROVIDERS: ATTEND Physician Assistant Medical | DX: E87.5 Hyperkalemia (principal) | CPT/HCPCS: 36415; 84132 ==

== ENCOUNTER → 2017-03-03 | Outpatient (CLI) | payer MEDICARE, BC ==
[2017-03-03 09:01] LABS: APPEARANCE,URINE CLEAR; BILIRUBIN,URINE NEGATIVE (NEGATIVE); GLUCOSE, URINE NEGATIVE (NEGATIVE); KETONES,URINE NEGATIVE (NEGATIVE); LEUKOCYTE ESTERASE,URINE NEGATIVE (NEGATIVE); NITRITE,URINE NEGATIVE (NEGATIVE); PROTEIN,URINE NEGATIVE (NEGATIVE); URINE SPECIFIC GRAVITY 1.008; UROBILINOGEN,URINE NEGATIVE mg/dL (<2.0)
[2017-03-03 09:06] LABS: HEMATOCRIT 34.7 % (37.9-51.0); HEMOGLOBIN 11.3 g/dL (13.5-17.0); HGB HCT DIFFERENCE -0.8; MEAN CORPUSCULAR HEMOGLOBIN 29.8 pg (27.0-33.4); MEAN CORPUSCULAR HGB CONC 32.6 g/dL (32.0-36.0); MEAN CORPUSCULAR VOLUME 91 fl (80-97); RED CELL DISTRIBUTION WIDTH 17.3 % (11.5-14.0); WHITE BLOOD COUNT 4.9 10^3/uL (4.0-10.5)
[2017-03-03 09:23] LABS: URINE CREATININE 67.7 mg/dL (22-328); URINE PROTEIN 37.6 mg/dL (<12)
[2017-03-03 09:34] LABS: ANION GAP 14 (5-19); BLOOD UREA NITROGEN 61 mg/dL (7-20); CALCIUM 9.1 mg/dL (8.4-10.2); CARBON DIOXIDE 22 mmol/L (22-30); CHLORIDE 107 mmol/L (98-107); CREATININE RESULT 3.31 mg/dL (0.52-1.25); GLUCOSE 112 mg/dL (75-110); PHOSPHORUS 4.2 mg/dL (2.5-4.5); POTASSIUM 4.4 mmol/L (3.6-5.0); SODIUM 143.1 mmol/L (137-145)
== END ==
LOC: OD 07:40
PROVIDERS: ATTEND Physician Assistant Medical
DX: I13.0 Hypertensive heart and chronic kidney disease with heart failure and stage 1 through stage 4 chronic kidney disease, or unspecified chronic kidney disease (principal); N18.4 Chronic kidney disease, stage 4 (severe); I50.9 Heart failure, unspecified; E87.5 Hyperkalemia; R80.9 Proteinuria, unspecified
CPT/HCPCS: 36415; 80048; 81001; 82570; 83970; 84100; 84156; 85027

== ENCOUNTER → 2017-05-29 | Outpatient (CLI) | payer MEDICARE, BC ==
[2017-05-29 10:01] LABS: APPEARANCE,URINE CLEAR; BILIRUBIN,URINE NEGATIVE (NEGATIVE); GLUCOSE, URINE NEGATIVE (NEGATIVE); KETONES,URINE NEGATIVE (NEGATIVE); LEUKOCYTE ESTERASE,URINE NEGATIVE (NEGATIVE); NITRITE,URINE NEGATIVE (NEGATIVE); PROTEIN,URINE 100 mg/dL (NEGATIVE); URINE SPECIFIC GRAVITY 1.012; UROBILINOGEN,URINE NEGATIVE mg/dL (<2.0)
[2017-05-29 10:03] LABS: HEMATOCRIT 38.5 % (37.9-51.0); HEMOGLOBIN 12.6 g/dL (13.5-17.0); HGB HCT DIFFERENCE -0.7; MEAN CORPUSCULAR HEMOGLOBIN 27.9 pg (27.0-33.4); MEAN CORPUSCULAR HGB CONC 32.6 g/dL (32.0-36.0); MEAN CORPUSCULAR VOLUME 86 fl (80-97); RED BLOOD COUNT 4.49 10^6/uL (4.35-5.55); RED CELL DISTRIBUTION WIDTH 18.4 % (11.5-14.0); WHITE BLOOD COUNT 6.4 10^3/uL (4.0-10.5)
[2017-05-29 10:15] LABS: ANION GAP 15 (5-19); BLOOD UREA NITROGEN 46 mg/dL (7-20); CALCIUM 9.2 mg/dL (8.4-10.2); CARBON DIOXIDE 21 mmol/L (22-30); CHLORIDE 113 mmol/L (98-107); CREATININE RESULT 3.71 mg/dL (0.52-1.25); GLUCOSE 103 mg/dL (75-110); POTASSIUM 4.9 mmol/L (3.6-5.0); SODIUM 149.4 mmol/L (137-145)
[2017-05-29 10:50] LABS: URINE CREATININE 113.2 mg/dL (22-328); URINE PROTEIN 73.6 mg/dL (<12)
== END ==
LOC: OD 08:28
PROVIDERS: ATTEND Physician Assistant Medical
DX: I12.9 Hypertensive chronic kidney disease with stage 1 through stage 4 chronic kidney disease, or unspecified chronic kidney disease (principal); N18.4 Chronic kidney disease, stage 4 (severe); E87.5 Hyperkalemia; R80.9 Proteinuria, unspecified
CPT/HCPCS: 36415; 80048; 81001; 82570; 84156; 85027

== ENCOUNTER → 2017-06-02 | Outpatient (CLI) | payer MEDICARE, BC ==
[2017-06-02 11:19] LABS: ANION GAP 16 (5-19); BLOOD UREA NITROGEN 48 mg/dL (7-20); CALCIUM 8.7 mg/dL (8.4-10.2); CARBON DIOXIDE 21 mmol/L (22-30); CHLORIDE 109 mmol/L (98-107); CREATININE RESULT 3.65 mg/dL (0.52-1.25); GLUCOSE 90 mg/dL (75-110); POTASSIUM 5.2 mmol/L (3.6-5.0); SODIUM 145.9 mmol/L (137-145)
== END ==
LOC: OD 09:13
PROVIDERS: ATTEND Internal Medicine Nephrology
DX: E87.0 Hyperosmolality and hypernatremia (principal)
CPT/HCPCS: 36415; 80048

== ENCOUNTER → 2017-06-05 | Outpatient (CLI) | payer MEDICARE, BC ==
--- NOTE | 2017-06-05 10:47 | RADIOLOGY REPORT (SQ) ---
EXAM DESCRIPTION: CHEST PA/LATERAL COMPLETED DATE/TIME: 06/05/2017 10:32 am REASON FOR STUDY: COUGH,SHORTNESS OF BREATH COMPARISON: 09/02/2016 EXAM PARAMETERS: NUMBER OF VIEWS: two views TECHNIQUE: Digital Frontal and Lateral radiographic views of the chest acquired. RADIATION DOSE: NA LIMITATIONS: none FINDINGS: LUNGS AND PLEURA: Mild interstitial changes are present. There is no infiltrate or effusi on. There is no mass. MEDIASTINUM AND HILAR STRUCTURES: No masses or contour abnormalities. HEART AND VASCULAR STRUCTURES: Heart normal size. No evidence for failure. BONES: No acute findings. HARDWARE: None in the chest. OTHER: No other significant finding. IMPRESSION: Chronic lung changes with no acute cardiopulmonary disease. TECHNICAL DOCUMENTATION: JOB ID: [id number] [employer]- All Rights Reserved
== END ==
LOC: OD 10:11
PROVIDERS: ATTEND Physician Assistant Medical
DX: R05 Cough (principal); R06.02 Shortness of breath
CPT/HCPCS: 71020

== ENCOUNTER → 2017-08-28 | Outpatient (CLI) | payer MEDICARE, BC ==
[2017-08-28 11:02] LABS: HEMATOCRIT 42.9 % (37.9-51.0); HEMOGLOBIN 14.1 g/dL (13.5-17.0); MEAN CORPUSCULAR HEMOGLOBIN 29.1 pg (27.0-33.4); MEAN CORPUSCULAR HGB CONC 32.8 g/dL (32.0-36.0); MEAN CORPUSCULAR VOLUME 89 fl (80-97); PLATELET COUNT 187 10^3/uL (150-450); RED BLOOD COUNT 4.83 10^6/uL (4.35-5.55); RED CELL DISTRIBUTION WIDTH 17.7 % (11.5-14.0); WHITE BLOOD COUNT 5.6 10^3/uL (4.0-10.5)
[2017-08-28 11:18] LABS: APPEARANCE,URINE CLEAR; BILIRUBIN,URINE NEGATIVE (NEGATIVE); COLOR,URINE STRAW; GLUCOSE, URINE NEGATIVE (NEGATIVE); KETONES,URINE NEGATIVE (NEGATIVE); LEUKOCYTE ESTERASE,URINE NEGATIVE (NEGATIVE); NITRITE,URINE NEGATIVE (NEGATIVE); PROTEIN,URINE NEGATIVE (NEGATIVE); URINE SPECIFIC GRAVITY 1.006; UROBILINOGEN,URINE NEGATIVE mg/dL (<2.0)
[2017-08-28 11:26] LABS: ANION GAP 11 (5-19); BLOOD UREA NITROGEN 46 mg/dL (7-20); CALCIUM 9.5 mg/dL (8.4-10.2); CARBON DIOXIDE 24 mmol/L (22-30); CHLORIDE 109 mmol/L (98-107); GLUCOSE 97 mg/dL (75-110); POTASSIUM 5.2 mmol/L (3.6-5.0); SODIUM 144.3 mmol/L (137-145)
== END ==
LOC: OD 10:29
PROVIDERS: ATTEND Physician Assistant Medical
DX: I12.9 Hypertensive chronic kidney disease with stage 1 through stage 4 chronic kidney disease, or unspecified chronic kidney disease (principal); N18.4 Chronic kidney disease, stage 4 (severe); E87.5 Hyperkalemia; E87.0 Hyperosmolality and hypernatremia
CPT/HCPCS: 36415; 80048; 81001; 83970; 84100; 85027

== ENCOUNTER → 2017-11-20 | Outpatient (CLI) | payer MEDICARE, BC ==
[2017-11-20 09:18] LABS: APPEARANCE,URINE CLEAR; BILIRUBIN,URINE NEGATIVE (NEGATIVE); COLOR,URINE YELLOW; GLUCOSE, URINE NEGATIVE (NEGATIVE); KETONES,URINE NEGATIVE (NEGATIVE); LEUKOCYTE ESTERASE,URINE NEGATIVE (NEGATIVE); NITRITE,URINE NEGATIVE (NEGATIVE); PROTEIN,URINE 30 mg/dL (NEGATIVE); UROBILINOGEN,URINE NEGATIVE mg/dL (<2.0)
[2017-11-20 09:24] LABS: HEMATOCRIT 39.1 % (37.9-51.0); HEMOGLOBIN 12.8 g/dL (13.5-17.0); MEAN CORPUSCULAR HEMOGLOBIN 29.5 pg (27.0-33.4); MEAN CORPUSCULAR HGB CONC 32.8 g/dL (32.0-36.0); MEAN CORPUSCULAR VOLUME 90 fl (80-97); PLATELET COUNT 179 10^3/uL (150-450); RED BLOOD COUNT 4.33 10^6/uL (4.35-5.55); RED CELL DISTRIBUTION WIDTH 16.3 % (11.5-14.0); WHITE BLOOD COUNT 4.7 10^3/uL (4.0-10.5)
[2017-11-20 09:45] LABS: UR PRO/CREAT RATIO RESULT 0.8 mg/mg (0.0-0.2); URINE CREATININE 76.1 mg/dL (22-328); URINE PROTEIN 58.6 mg/dL (<12)
[2017-11-20 09:47] LABS: ANION GAP 14 (5-19); BLOOD UREA NITROGEN 54 mg/dL (7-20); CALCIUM 9.6 mg/dL (8.4-10.2); CARBON DIOXIDE 25 mmol/L (22-30); CHLORIDE 108 mmol/L (98-107); GLUCOSE 111 mg/dL (75-110); POTASSIUM 4.8 mmol/L (3.6-5.0); SODIUM 146.8 mmol/L (137-145)
== END ==
LOC: OD 08:43
PROVIDERS: ATTEND Physician Assistant Medical
DX: N18.4 Chronic kidney disease, stage 4 (severe) (principal); I50.9 Heart failure, unspecified; R80.9 Proteinuria, unspecified; E87.5 Hyperkalemia
CPT/HCPCS: 36415; 80048; 81001; 82570; 84156; 85027

== ENCOUNTER → 2018-01-23 | Outpatient (CLI) | payer MEDICARE, BC ==
[2018-01-23 09:56] LABS: HEMATOCRIT 39.5 % (37.9-51.0); HEMOGLOBIN 13.1 g/dL (13.5-17.0); MEAN CORPUSCULAR HEMOGLOBIN 30.1 pg (27.0-33.4); MEAN CORPUSCULAR HGB CONC 33.3 g/dL (32.0-36.0); MEAN CORPUSCULAR VOLUME 90 fl (80-97); PLATELET COUNT 186 10^3/uL (150-450); RED BLOOD COUNT 4.37 10^6/uL (4.35-5.55); RED CELL DISTRIBUTION WIDTH 17.2 % (11.5-14.0); WHITE BLOOD COUNT 6.4 10^3/uL (4.0-10.5)
[2018-01-23 10:30] LABS: ANION GAP 15 (5-19); BLOOD UREA NITROGEN 81 mg/dL (7-20); CALCIUM 9.4 mg/dL (8.4-10.2); CARBON DIOXIDE 18 mmol/L (22-30); CHLORIDE 112 mmol/L (98-107); GLUCOSE 101 mg/dL (75-110); PHOSPHORUS 5.6 mg/dL (2.5-4.5); POTASSIUM 5.4 mmol/L (3.6-5.0); SODIUM 144.7 mmol/L (137-145)
[2018-01-23 11:00] LABS: APPEARANCE,URINE CLEAR; BILIRUBIN,URINE NEGATIVE (NEGATIVE); COLOR,URINE YELLOW; GLUCOSE, URINE NEGATIVE (NEGATIVE); KETONES,URINE NEGATIVE (NEGATIVE); LEUKOCYTE ESTERASE,URINE NEGATIVE (NEGATIVE); NITRITE,URINE NEGATIVE (NEGATIVE); PROTEIN,URINE 30 mg/dL (NEGATIVE); URINE SPECIFIC GRAVITY 1.011; UROBILINOGEN,URINE NEGATIVE mg/dL (<2.0)
== END ==
LOC: OD 09:32
PROVIDERS: ATTEND Physician Assistant Medical
DX: I12.9 Hypertensive chronic kidney disease with stage 1 through stage 4 chronic kidney disease, or unspecified chronic kidney disease (principal); N18.4 Chronic kidney disease, stage 4 (severe); E87.5 Hyperkalemia; I50.9 Heart failure, unspecified
CPT/HCPCS: 36415; 80048; 81001; 83970; 84100; 85027

== ENCOUNTER → 2018-02-11 | Outpatient (CLI) | payer MEDICARE, BC ==
[2018-02-11 12:56] LABS: ABSOLUTE LYMPHOCYTES (AUTO) 0.9 10^3/uL (0.5-4.7); ABSOLUTE MONOCYTES (AUTO) 0.6 10^3/uL (0.1-1.4); ABSOLUTE NEUT (AUTO) 5.1 10^3/uL (1.7-8.2); BASOPHILS % (AUTO) 0.3 % (0-2); EOSINOPHILS % (AUTO) 0.7 % (0-6); HEMATOCRIT 33.3 % (37.9-51.0); HEMOGLOBIN 11.2 g/dL (13.5-17.0); LYMPHOCYTES % (AUTO) 12.8 % (13-45); MEAN CORPUSCULAR HEMOGLOBIN 30.6 pg (27.0-33.4); MEAN CORPUSCULAR HGB CONC 33.8 g/dL (32.0-36.0); MEAN CORPUSCULAR VOLUME 91 fl (80-97); MONOCYTES % (AUTO) 9.6 % (3-13); PLATELET COUNT 192 10^3/uL (150-450); RED BLOOD COUNT 3.67 10^6/uL (4.35-5.55); RED CELL DISTRIBUTION WIDTH 17.2 % (11.5-14.0); SEGMENTED NEUTROPHILS % (AUTO) 76.6 % (42-78); TOTAL CELLS COUNTED % (AUTO) 100 %; WHITE BLOOD COUNT 6.7 10^3/uL (4.0-10.5)
[2018-02-11 13:14] LABS: ALANINE AMINOTRANSFERASE 111 U/L (21-72); ALBUMIN 3.7 g/dL (3.5-5.0); ALKALINE PHOSPHATASE 247 U/L (38-126); ANION GAP 17 (5-19); ASPARTATE AMINO TRANSFERASE 76 U/L (17-59); BILIRUBIN,DIRECT 0.4 mg/dL (0.0-0.4); BILIRUBIN,TOTAL 0.6 mg/dL (0.2-1.3); BLOOD UREA NITROGEN 77 mg/dL (7-20); CALCIUM 8.9 mg/dL (8.4-10.2); CARBON DIOXIDE 17 mmol/L (22-30); CHLORIDE 108 mmol/L (98-107); GLUCOSE 98 mg/dL (75-110); POTASSIUM 4.9 mmol/L (3.6-5.0); SODIUM 142.4 mmol/L (137-145); TOTAL PROTEIN 6.8 g/dL (6.3-8.2)
== END ==
LOC: OD 11:52
PROVIDERS: ATTEND Internal Medicine
DX: R10.11 Right upper quadrant pain (principal)
CPT/HCPCS: 36415; 80053; 85025

== ENCOUNTER → 2018-02-18 | Outpatient (CLI) | payer MEDICARE, BC ==
[2018-02-18 10:36] LABS: ANION GAP 18 (5-19); BLOOD UREA NITROGEN 72 mg/dL (7-20); CALCIUM 8.7 mg/dL (8.4-10.2); CARBON DIOXIDE 15 mmol/L (22-30); CHLORIDE 114 mmol/L (98-107); GLUCOSE 94 mg/dL (75-110); POTASSIUM 4.7 mmol/L (3.6-5.0); SODIUM 146.5 mmol/L (137-145)
== END ==
LOC: OD 09:16
PROVIDERS: ATTEND Physician Assistant Medical
DX: I12.9 Hypertensive chronic kidney disease with stage 1 through stage 4 chronic kidney disease, or unspecified chronic kidney disease (principal); N18.4 Chronic kidney disease, stage 4 (severe); I50.9 Heart failure, unspecified; E87.5 Hyperkalemia
CPT/HCPCS: 36415; 80048

== ENCOUNTER → 2018-03-27 | Outpatient (CLI) | payer MEDICARE, BC ==
[2018-03-27 10:56] LABS: APPEARANCE,URINE CLEAR; BILIRUBIN,URINE NEGATIVE (NEGATIVE); COLOR,URINE YELLOW; GLUCOSE, URINE NEGATIVE (NEGATIVE); KETONES,URINE NEGATIVE (NEGATIVE); LEUKOCYTE ESTERASE,URINE NEGATIVE (NEGATIVE); NITRITE,URINE NEGATIVE (NEGATIVE); PROTEIN,URINE 100 mg/dL (NEGATIVE); URINE SPECIFIC GRAVITY 1.012; UROBILINOGEN,URINE NEGATIVE mg/dL (<2.0)
[2018-03-27 10:57] LABS: HEMATOCRIT 31.3 % (37.9-51.0); HEMOGLOBIN 10.5 g/dL (13.5-17.0); MEAN CORPUSCULAR HEMOGLOBIN 32.1 pg (27.0-33.4); MEAN CORPUSCULAR HGB CONC 33.6 g/dL (32.0-36.0); MEAN CORPUSCULAR VOLUME 96 fl (80-97); PLATELET COUNT 167 10^3/uL (150-450); RED BLOOD COUNT 3.27 10^6/uL (4.35-5.55); RED CELL DISTRIBUTION WIDTH 15.5 % (11.5-14.0)
[2018-03-27 11:24] LABS: ANION GAP 13 (5-19); BLOOD UREA NITROGEN 66 mg/dL (7-20); CARBON DIOXIDE 16 mmol/L (22-30); CHLORIDE 114 mmol/L (98-107); GLUCOSE 95 mg/dL (75-110); POTASSIUM 4.8 mmol/L (3.6-5.0); SODIUM 143.4 mmol/L (137-145)
== END ==
LOC: OD 09:34
PROVIDERS: ATTEND Physician Assistant Medical
DX: N18.4 Chronic kidney disease, stage 4 (severe) (principal); I50.9 Heart failure, unspecified; R60.9 Edema, unspecified
CPT/HCPCS: 36415; 80048; 81001; 83970; 84100; 85027

== ENCOUNTER 2018-04-11 22:49 | Emergency (ER) | payer MEDICARE, BC ==
[2018-04-11] MEDS ORDERED: FUROSEMIDE INJ/PF 40 MG/4 ML SDV IV ONE (23:01)
[2018-04-11] MEDS ORDERED: DILTIAZEM HCL/D5W 125 MG/125 ML RTUINJ IV PRN (23:02)
--- NOTE | 2018-04-11 23:04 | ER Document Report ---
ED General - General Stated Complaint: SHORTNESS OF BREATH Time Seen by Provider: 04/11/18 23:00 Cannot obtain history due to: Unstable vital signs Notes: Patient is a 82-year-old male with a past medical history of chronic kidney disease, recent diagnosis of liver malignancy of undetermined stage, hypertension, atrial fibrillation chronically anticoagulated on Coumadin, pacemaker placement, who presents with respiratory distress. History is somewhat limited initially as the patient is in significant respiratory distress. Per EMS the patient had a relatively abrupt onset of shortness of breath over the course of several hours. The patient attempted to use an albuterol inhaler to relieve his symptoms but states that this dramatically worsened them. At time of arrival he presents complaining of shortness of breath and palpitations. EMS reports that after slowing his rate with diltiazem he seemed clinically improved. They apparently gave him another albuterol nebulizer and this again caused worsening of the symptoms. Patient denies a history of similar symptoms in the past. He denies chest pain, fever, vomiting, abdominal pain or cough. TRAVEL OUTSIDE OF THE [place] IN LAST 30 DAYS: No - Related Data Allergies/Adverse Reactions: No Known Allergies Allergy (Verified 04/11/18 23:25) Past Medical History - General Information source: Patient, Emergency Med Personnel Cannot obtain history due to: Unstable vital signs - Social History Smoking Status: Former Smoker Frequency of alcohol use: None Drug Abuse: None Lives with: Family Family History: Reviewed & Not Pertinent - Past Medical History Cardiac Medical History: Reports: Hx Atrial Fibrillation, Hx Coronary Artery Disease, Hx Hypertension Denies: Hx Heart Attack Pulmonary Medical History: Reports: Hx COPD, Hx Pneumonia - as a child Denies: Hx Asthma, Hx Bronchitis Neurological Medical History: Denies: Hx Cerebrovascular Accident, Hx Seizures Renal/ Medical History: Denies: Hx Peritoneal Dialysis Musculoskeletal Medical History: Reports Hx Arthritis Psychiatric Medical History: Reports: Hx Depression Past Surgical History: Reports: Hx Appendectomy, Hx Orthopedic Surgery - left shoulder pin placed, left knee surgery, Hx Pacemaker - Immunizations Hx Diphtheria, Pertussis, Tetanus Vaccination: No Review of Systems - Review of Systems Notes: Constitutional: Negative for fever. HENT: Negative for sore throat. Eyes: Negative for visual changes. Cardiovascular: Negative for chest pain. Respiratory: Positive for shortness of breath. Gastrointestinal: Negative for abdominal pain, vomiting or diarrhea. Genitourinary: Negative for dysuria. Musculoskeletal: Positive for bilateral lower extremity edema Skin: Negative for rash. Neurological: Negative for headaches, weakness or numbness. 10 point ROS negative except as marked above and in HPI. Physical Exam - Vital signs Vitals: Resp 37 H 04/11/18 22:57 Interpretation: Tachycardic, Tachypneic Notes: PHYSICAL EXAMINATION: GENERAL: Ill in appearance, in moderate respiratory distress HEAD: Atraumatic, normocephalic. EYES: Pupils equal round and reactive to light, extraocular movements intact, sclera anicteric, conjunctiva are normal. ENT: nares patent, oropharynx clear without exudates. Moderately dry mucous membranes. NECK: Normal range of motion, supple without lymphadenopathy LUNGS: Diminished breath sounds at the bases bilaterally, crackles at the bases bilaterally. Moderate respiratory distress, breathing approximately 45 times per minute on initial assessment. Able to speak in 2-3 words per sentence. HEART: Irregularly irregular rate and rhythm without murmurs ABDOMEN: Soft, nontender, normoactive bowel sounds. No guarding, no rebound. No masses appreciated. EXTREMITIES: Normal range of motion, 1+ pitting edema in the bilateral lower extremities that is equal and symmetric. No cyanosis. NEUROLOGICAL: No focal neurological deficits. Moves all extremities spontaneously and on command. PSYCH: Normal mood, normal affect. SKIN: Warm, Dry, normal turgor, no rashes or lesions noted. Course - Re-evaluation Re-evalutation: 04/11/18 23:02 Patient presents in moderate respiratory distress, breathing 40-42 times a minute, saturating 92-93% on room air. Able to speak in 3-4 word sentences. He is in atrial fibrillation with rapid ventricular response. Blood pressure somewhat elevated in the 160 systolic. Clinical presentation is most consistent with acute CHF exacerbation with pulmonary edema based on rales and crackles on examination. The patient is also diminished at the bases bilaterally. His A. fib with rapid ventricular response is likely a combination of his volume overload as well as having use an albuterol inhaler several times at home in an attempt to improve his shortness of breath. He does not have a history of COPD or asthma. He will be placed on BiPAP given his degree of work of breathing as well as to decrease pulmonary edema. A bolus of diltiazem has been given in the field. We will initiate a diltiazem infusion. Patient is critically ill, will require frequent reassessments. 04/12/18 00:10 Patient's renal failure has dramatically worsened since his last assessment, GFR to 9. His BNP is also markedly elevated and troponin is also somewhat elevated. He is leukopenic. Chest x-ray is called as a left lung base although it appears to be asymmetric edema versus a true pneumonia. Patient does not have other signs or symptoms that would suggest a pneumonia. No fever , denies a recent cough or any other infectious symptoms. Patient is significantly improving on BiPAP, work of breathing has markedly improved. His heart rate is also improving currently 106-1/10 on diltiazem infusion at 10 mg/ h. We do not have nephrology support, patient will require transfer. 04/12/18 01:03 I discussed this case with the fellow working under Dr. Manjinder Yang in the cardiac care unit for [facility]. He has accepted the patient for transfer. I have updated the family. Patient work of breathing continues to improve. Heart rate currently 103 on diltiazem. Family clarifies again that the patient has not received definitive stage of his liver cancer and is not currently on chemotherapy. 04/12/18 03:08 Patient continues to tolerate BiPAP and diltiazem infusion well. Work of breathing has effectively normalized at this time point. Vitals remain within acceptable limits. Awaiting transfer. - Vital Signs Vital signs: Temp Pulse Resp BP Pulse Ox 20 106/54 L 98 04/12/18 01:46 04/12/18 01:46 04/12/18 01:46 - Laboratory Result Diagrams: 04/11/18 23:04 04/11/18 23:04 Laboratory results interpreted by me: 04/11/18 04/11/18 04/11/18 23:04 23:04 23:04 WBC 1.7 L RBC 3.38 L Hgb 10.8 L Hct 33.2 L MCV 98 H RDW 15.6 H Seg Neuts % (Manual) 86 H Lymphocytes % (Manual) 10 L Monocytes % (Manual) 2 L Abs Neuts (Manual) 1.5 L Abs Lymphs (Manual) 0.2 L Abs Monocytes (Manual) 0.0 L PT APTT Potassium 5.1 H Chloride 117 H Carbon Dioxide 10 L* BUN 67 H Creatinine 7.30 H Est GFR ( Amer) 9 L Est GFR (Non-Af Amer) 7 L Glucose 113 H Direct Bilirubin AST ALT Alkaline Phosphatase NT-Pro-B Natriuret Pep 13907 H 04/11/18 04/11/18 23:04 23:04 WBC RBC Hgb Hct MCV RDW Seg Neuts % (Manual) Lymphocytes % (Manual) Monocytes % (Manual) Abs Neuts (Manual) Abs Lymphs (Manual) Abs Monocytes (Manual) PT 21.1 H APTT 22.8 L Potassium Chloride Carbon Dioxide BUN Creatinine Est GFR ( Amer) Est GFR (Non-Af Amer) Glucose Direct Bilirubin 0.7 H AST 76 H ALT 81 H Alkaline Phosphatase 292 H NT-Pro-B Natriuret Pep - Diagnostic Test Radiology reviewed: Image reviewed, Reports reviewed Radiology results interpreted by me: 04/12/18 00:28 Chest x-ray: Vascular congestion, infiltrate left base - EKG Interpretation by Me Additional EKG results interpreted by me: 04/12/18 03:09 Atrial fibrillation with rapid ventricular response. Rate 122. No ST elevations or depressions. QTC is 462. 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
[2018-04-11 23:33] LABS: HEMATOCRIT 33.2 % (37.9-51.0); HEMOGLOBIN 10.8 g/dL (13.5-17.0); MEAN CORPUSCULAR HGB CONC 32.5 g/dL (32.0-36.0); MEAN CORPUSCULAR VOLUME 98 fl (80-97); PLATELET COUNT 179 10^3/uL (150-450); RED BLOOD COUNT 3.38 10^6/uL (4.35-5.55); RED CELL DISTRIBUTION WIDTH 15.6 % (11.5-14.0)
[2018-04-11] MEDS ORDERED: ONDANSETRON HCL INJ/PF 4 MG/2 ML SDV ONE (23:37)
[2018-04-11 23:40] LABS: BLOOD UREA NITROGEN 67 mg/dL (7-20); CALCIUM 8.7 mg/dL (8.4-10.2); CHLORIDE 117 mmol/L (98-107); GLUCOSE 113 mg/dL (75-110); POTASSIUM 5.1 mmol/L (3.6-5.0); SODIUM 140.5 mmol/L (137-145)
--- NOTE | 2018-04-11 23:42 | RADIOLOGY REPORT (SQ) ---
EXAM DESCRIPTION: XR CHEST 1 VIEW COMPLETED DATE/TME: 04/11/2018 23:00 CLINICAL HISTORY: 82 years, Male, sob COMPARISON: 06/05/2017 EXAM DESCRIPTION: CLINICAL HISTORY: sob COMPARISON: None. FINDINGS: Single view of the chest is submitted. Cardiac silhouette is mildly enlarged. There is consolidation in the left lung base. There is mild bilateral pulmonary vascular engorgement. IMPRESSION: Left lung base consolidation.
[2018-04-11 23:45] LABS: ANION GAP 14 (5-19)
[2018-04-11 23:48] LABS: ABSOLUTE LYMPHOCYTES# (MANUAL) 0.2 10^3/uL (0.5-4.7); ABSOLUTE NEUTROPHILS# (MANUAL) 1.5 10^3/uL (1.7-8.2); BASOPHILS % (MANUAL) 0 % (0-2); EOSINOPHILS % (MANUAL) 2 % (0-6); LYMPHOCYTES % (MANUAL) 10 % (13-45); MONOCYTES % (MANUAL) 2 % (3-13); SEGMENTED NEUTROPHILS % (MAN) 86 % (42-78); TOTAL CELLS COUNTED 50
[2018-04-11 23:49] LABS: ANISOCYTOSIS 1+; BURR CELLS 2+; HELMET CELLS SLIGHT; POIKILOCYTOSIS 2+; POLYCHROMASIA SLIGHT; TOXIC GRANULATION SLIGHT; TOXIC VACUOLATION PRESENT
[2018-04-11] MEDS ORDERED: ONDANSETRON HCL INJ/PF 4 MG/2 ML SDV IV ONE (23:49)
[2018-04-11 23:50] LABS: PLATELET CLUMPS PRESENT; PLATELET COMMENT ADEQUATE; PLATELET LARGE PRESENT; SCHISTOCYTES 1+; WHITE BLOOD COUNT 1.7 10^3/uL (4.0-10.5)
[2018-04-12 00:03] LABS: CARBON DIOXIDE 10 mmol/L (22-30); TROPONIN I 0.063 ng/mL
[2018-04-12] MEDS ORDERED: DILTIAZEM HCL/D5W 125 MG/125 ML RTUINJ IV ONE (00:08)
[2018-04-12 01:07] LABS: INTERNATIONAL RATION (INR) 1.74; PARTIAL THROMBOPLASTIN TIME 22.8 SEC (23.5-35.8); PROTHROMBIN TIME 21.1 SEC (11.4-15.4)
[2018-04-12 01:13] LABS: ALANINE AMINOTRANSFERASE 81 U/L (21-72); ALBUMIN 3.7 g/dL (3.5-5.0); ALKALINE PHOSPHATASE 292 U/L (38-126); ASPARTATE AMINO TRANSFERASE 76 U/L (17-59); BILIRUBIN,DIRECT 0.7 mg/dL (0.0-0.4); BILIRUBIN,TOTAL 0.9 mg/dL (0.2-1.3); TOTAL PROTEIN 7.4 g/dL (6.3-8.2)
--- NOTE | 2018-04-12 14:32 | EKG REPORT ---
SEVERITY:- ABNORMAL ECG - ATRIAL FIBRILLATION, V-RATE 106-155 LEFT ANTERIOR FASCICULAR BLOCK ABNRM R PROG, CONSIDER ASMI OR LEAD PLACEMENT : Confirmed by: Sharon Ferrera MD 12-Apr-2018 14:31:24
[2018-04-12 15:24] VITALS: BP 122/69
--- NOTE | 2018-04-12 16:30 | ER Document Report ---
Doctor's Note Notes: 04/12/18 16:29 The [facility] [place] ground transport team is here in the room with the patient and have loaded the patient and they are ready to transport. The patient's vital signs are stable, he is sitting up alert and oriented is not on BiPAP but has a pulse ox of 95%. He is stable for transfer.
[2018-04-13 10:56] LABS: PATH REVIEW PATHOLOGIST REVIEWED
== END 2018-04-12 16:36 | disposition short-term general hospital (02) ==
LOC: ER 22:49
DX: I13.0 Hypertensive heart and chronic kidney disease with heart failure and stage 1 through stage 4 chronic kidney disease, or unspecified chronic kidney disease (principal); I50.43 Acute on chronic combined systolic (congestive) and diastolic (congestive) heart failure; I48.91 Unspecified atrial fibrillation; R06.03 Acute respiratory distress; C22.8 Malignant neoplasm of liver, primary, unspecified as to type; Z79.01 Long term (current) use of anticoagulants; Z95.0 Presence of cardiac pacemaker; Z87.891 Personal history of nicotine dependence
CPT/HCPCS: 93005; 99291; 96375; 96365; 96366; 36415; 85025; 85610; 85730; 80076; 80048; 84484; 83880; 71045; 93010; 94660 ×2; J1940; J2405; J3490

== ENCOUNTER 2018-06-01 09:47 | Day surgery (SDC) | payer MEDICARE, BC ==
[2018-05-27 13:03] LABS: HEMATOCRIT 35.9 % (37.9-51.0); MEAN CORPUSCULAR HEMOGLOBIN 33.1 pg (27.0-33.4); MEAN CORPUSCULAR HGB CONC 33.5 g/dL (32.0-36.0); MEAN CORPUSCULAR VOLUME 99 fl (80-97); PLATELET COUNT 166 10^3/uL (150-450); RED BLOOD COUNT 3.64 10^6/uL (4.35-5.55); RED CELL DISTRIBUTION WIDTH 16.1 % (11.5-14.0); WHITE BLOOD COUNT 5.3 10^3/uL (4.0-10.5)
[2018-05-27 13:18] LABS: ANION GAP 16 (5-19); BLOOD UREA NITROGEN 31 mg/dL (7-20); CARBON DIOXIDE 28 mmol/L (22-30); CHLORIDE 99 mmol/L (98-107); GLUCOSE 95 mg/dL (75-110); POTASSIUM 4.7 mmol/L (3.6-5.0); SODIUM 143.2 mmol/L (137-145)
--- NOTE | 2018-05-27 13:25 | EKG REPORT ---
SEVERITY:- ABNORMAL ECG - ATRIAL FIBRILLATION, V-RATE 73-113 LEFT AXIS DEVIATION BORDERLINE PROLONGED QT INTERVAL : Confirmed by: Michi Gregg MD 27-May-2018 13:23:40
[~2018-06-01 09:47] MED LIST: BACITRACIN INJ 50,000 UNIT VIAL ONE; BUPIVACAINE HCL 0.5 % INJ/PF 30 ML SDV ONE; CEFAZOLIN 1 GM/D5W RTU 1 GM/50 ML RTUPB IV PRN; HEPARIN SOD (PORCINE) 1,000 UNIT/ML 10 ML VIAL ONE; LIDOCAINE 0.5% INJ-PF (5 MG/ML) 50 ML SDV ONE; LIDOCAINE 0.5% INJ-PF (5 MG/ML) 50 ML SDV SUBCUT PRN; LIDOCAINE 1% INJ-PF (10 MG/ML) 30 ML SDV ONE; NORMAL SALINE 1000 ML (RENAL PATIENTS) IV PRN
[2018-06-01] MEDS ORDERED: CEFAZOLIN 1 GM/D5W RTU 1 GM/50 ML RTUPB IV ONE (10:34)
[2018-06-01] MEDS ORDERED: FENTANYL CITRATE INJ/PF 100 MCG/2 ML AMPUL ONE (10:45)
[2018-06-01] MEDS ORDERED: PROPOFOL INJ 200 MG/20 ML VIAL IV ONE (10:45)
[2018-06-01] MEDS ORDERED: MIDAZOLAM 2 MG/2 ML INJ ONE (10:45)
[2018-06-01] MEDS ORDERED: LIDOCAINE 1% INJ-PF (10 MG/ML) 30 ML SDV ONE (10:49)
[2018-06-01 10:56] LABS: INTERNATIONAL RATION (INR) 1.04; PROTHROMBIN TIME 14.1 SEC (11.4-15.4)
[2018-06-01 10:57] LABS: PARTIAL THROMBOPLASTIN TIME 27.1 SEC (23.5-35.8)
--- NOTE | 2018-06-01 11:04 | RADIOLOGY REPORT (SQ) ---
EXAM DESCRIPTION: CHEST SINGLE VIEW COMPLETED DATE/TIME: 06/01/2018 10:19 am REASON FOR STUDY: PREOP COMPARISON: August 2016 EXAM PARAMETERS: NUMBER OF VIEWS: One view. TECHNIQUE: Single frontal radiographic view of the chest acquired. RADIATION DOSE: NA LIMITATIONS: None. FINDINGS: LUNGS AND PLEURA: No opacities, masses or pneumothorax. No pleural effusion. MEDIASTINUM AND HILAR STRUCTURES: No masses. Contour normal. HEART AND VASCULAR STRUCTURES: Heart normal in size. Normal vasculature. BONES: No acute findings. HARDWARE: Single chamber transvenous pacemaker is unchanged in position. Pool lumen central line is identified with its tip the level of the right atrium. OTHER: No other significant finding. IMPRESSION: NO ACUTE RADIOGRAPHIC FINDING IN THE CHEST. TECHNICAL DOCUMENTATION: JOB ID: [id number] [employer]- All Rights Reserved Reading location - IP/workstation name: [email or web address]
[2018-06-01] MEDS ORDERED: DIPHENHYDRAMINE HCL 50 MG/ML VIAL IV PRN (12:09)
[2018-06-01] MEDS ORDERED: FENTANYL CITRATE INJ/PF 100 MCG/2 ML AMPUL IV PRN ×2 (12:09)
[2018-06-01] MEDS ORDERED: MEPERIDINE HCL/PF INJ 25 MG/1 ML DISP.SYRIN IV PRN (12:09)
[2018-06-01] MEDS ORDERED: PROMETHAZINE HCL INJ 25 MG/1 ML VIAL IV PRN (12:09)
[2018-06-01] MEDS ORDERED: HEPARIN SODIUM,PORCINE/NS/PF 0 UNIT/0 ML RTUINJ IV ONE (12:11)
--- NOTE | 2018-06-01 13:26 | Discharge Summary ---
Discharge Summary (SDC) - Discharge Final Diagnosis: #1 end-stage renal disease on hemodialysis. 2. Atrial fibrillation. 3. Permanent pacemaker. 4. Liver cancer. 5. Depression. Date of Surgery: 06/01/18 Discharge Date: 06/01/18 Condition: Fair Treatment or Instructions: Discharge home [after recovery per ASU criteria]. Diet , [renal],as tolerated, when fully awake advance as tolerated. Activities within moderation encouraged. Follow up in my office by appointment in about [2 weeks. Call for appointment. Leave wounds [covered], [keep clean and dry, until office visit in 1 week]. Hold of on school/work [until evaluation in office]. Meds per med rec. Percocet. May shower [in 48 hrs], [try to keep operated area as dry as possible]. Prescriptions: Oxycodone HCl/Acetaminophen [Percocet 5-325 mg Tablet] 1 tab PO ASDIR PRN #15 tab PRN Reason: Referrals: SHAWN BARNES MD [Primary Care Provider] - Discharge Diet: Other (Comments) - Renal. Respiratory Treatments at Home: Deep Breathing/Coughing Discharge Activity: Activity As Tolerated Report the Following to Your Physician Immediately: Shortness of Breath, Unusual Bleeding
--- NOTE | 2018-06-01 13:26 | Operative Report ---
Operative Report DATE OF SURGERY: 06/01/18 PREOPERATIVE DIAGNOSIS: #1 end-stage renal disease on hemodialysis. 2. Atrial fibrillation. 3. Permanent pacemaker. 4. Liver cancer. 5. Depression POSTOPERATIVE DIAGNOSIS: #1 end-stage renal disease on hemodialysis. 2. Atrial fibrillation. 3. Permanent pacemaker. 4. Liver cancer. 5. Depression OPERATION: Insertion of right brachiocephalic fistula. SURGEON: SHANNAN ORONA THERMOCOUPLE TESTER: None. ANESTHESIA: LMAC
[2018-06-01 15:13] VITALS: BP 134/68
== END 2018-06-01 15:16 | disposition home or self-care (01) ==
LOC: OROUT 09:47
PROVIDERS: ATTEND Surgery
DX: N28.9 Disorder of kidney and ureter, unspecified (principal); N18.6 End stage renal disease; Z99.2 Dependence on renal dialysis; I48.91 Unspecified atrial fibrillation; C22.9 Malignant neoplasm of liver, not specified as primary or secondary; Z95.0 Presence of cardiac pacemaker; F32.9 Major depressive disorder, single episode, unspecified; E83.119 Hemochromatosis, unspecified; R06.02 Shortness of breath; M47.892 Other spondylosis, cervical region; Z85.828 Personal history of other malignant neoplasm of skin; Z79.899 Other long term (current) drug therapy; Z79.01 Long term (current) use of anticoagulants; Z01.818 Encounter for other preprocedural examination
CPT/HCPCS: 93005; 36415 ×2; 84132; 85027; 85610; 85730; 80048; 71045; 93010; 36821; J2250; J3490 ×4; J0690; J3010; J1644; J2704; 1844

== ENCOUNTER 2018-06-18 09:20 | Day surgery (SDC) | payer MEDICARE, BC ==
[~2018-06-18 09:20] MED LIST changes: -BACITRACIN INJ 50,000 UNIT VIAL ONE; -BUPIVACAINE HCL 0.5 % INJ/PF 30 ML SDV ONE; +DIAZEPAM 5 MG TABLET PO PRN; -HEPARIN SOD (PORCINE) 1,000 UNIT/ML 10 ML VIAL ONE; -LIDOCAINE 0.5% INJ-PF (5 MG/ML) 50 ML SDV ONE; -LIDOCAINE 0.5% INJ-PF (5 MG/ML) 50 ML SDV SUBCUT PRN; -LIDOCAINE 1% INJ-PF (10 MG/ML) 30 ML SDV ONE; -NORMAL SALINE 1000 ML (RENAL PATIENTS) IV PRN; +OXYCODONE-ACETAMINOPHEN 5-325 MG TABLET PO PRN
[2018-06-18] MEDS ORDERED: DIAZEPAM 5 MG TABLET ONE (10:00)
[2018-06-18] MEDS ORDERED: CEFAZOLIN 1 GM/D5W RTU 1 GM/50 ML RTUPB IV ONE (10:00)
[2018-06-18] MEDS ORDERED: OXYCODONE-ACETAMINOPHEN 5-325 MG TABLET ONE (10:00)
[2018-06-18 10:46] LABS: HEMOGLOBIN 11.5 g/dL (13.5-17.0); MEAN CORPUSCULAR HEMOGLOBIN 33.1 pg (27.0-33.4); MEAN CORPUSCULAR HGB CONC 32.7 g/dL (32.0-36.0); MEAN CORPUSCULAR VOLUME 101 fl (80-97); PLATELET COUNT 136 10^3/uL (150-450); RED BLOOD COUNT 3.46 10^6/uL (4.35-5.55); RED CELL DISTRIBUTION WIDTH 16.6 % (11.5-14.0); WHITE BLOOD COUNT 4.9 10^3/uL (4.0-10.5)
[2018-06-18 10:58] LABS: INTERNATIONAL RATION (INR) 1.23; PROTHROMBIN TIME 16.1 SEC (11.4-15.4)
[2018-06-18 10:59] LABS: PARTIAL THROMBOPLASTIN TIME 28.4 SEC (23.5-35.8)
[2018-06-18 11:10] LABS: BLOOD UREA NITROGEN 92 mg/dL (7-20); CALCIUM 8.9 mg/dL (8.4-10.2); CARBON DIOXIDE 15 mmol/L (22-30); CHLORIDE 113 mmol/L (98-107); GLUCOSE 97 mg/dL (75-110)
[2018-06-18 11:23] LABS: ANION GAP 19 (5-19); POTASSIUM 5.2 mmol/L (3.6-5.0); SODIUM 147.3 mmol/L (137-145)
[2018-06-18] MEDS ORDERED: BACITRACIN INJ 50,000 UNIT VIAL ONE (12:01)
[2018-06-18] MEDS ORDERED: LIDOCAINE 0.5% INJ-PF (5 MG/ML) 50 ML SDV ONE (12:01)
[2018-06-18] MEDS ORDERED: MIDAZOLAM 2 MG/2 ML INJ ONE (12:01)
[2018-06-18] MEDS ORDERED: FENTANYL CITRATE INJ/PF 100 MCG/2 ML AMPUL ONE (12:01)
--- NOTE | 2018-06-18 13:43 | Discharge Summary ---
Discharge Summary (SDC) - Discharge Final Diagnosis: #1 malfunctioning permacatheter. 2. End-stage renal disease on hemodialysis. 3. COPD. 4. Atrial fibrillation. 5. Pacemaker in place. 6. Liver cancer. 7. Hypertension. Forms: ASU Anesthesia D/C Instruction, Discharge POC-Surgical Service Treatment or Instructions: Discharge home [after recovery per ASU criteria]. Diet , [renal],as tolerated, when fully awake advance as tolerated. Activities within moderation encouraged. Follow up in my office by appointment in about [1 week]. Call for appointment. Leave wounds [covered], [keep clean and dry, until office visit in 1 week]. Hold of on school/work [until evaluation in office]. Meds per med rec. May shower [in 48 hrs], [try to keep operated area as dry as possible]. Referrals: SHAWN BARNES MD [Primary Care Provider] - SHANNAN BASSETT MD [ACTIVE STAFF] - Discharge Diet: Other (Comments) - Renal. Respiratory Treatments at Home: Deep Breathing/Coughing Discharge Activity: Activity As Tolerated Report the Following to Your Physician Immediately: Shortness of Breath, Unusual Bleeding
--- NOTE | 2018-06-18 13:59 | Operative Report ---
Operative Report DATE OF SURGERY: 06/18/18 PREOPERATIVE DIAGNOSIS: 1. Malfunctioning PermCath catheter. 2. End-stage renal disease on hemodialysis. 3. Liver disease. 4. COPD. 5. Atrial fibrillation. 6. Pacemaker in place. 7. Hypertension. POSTOPERATIVE DIAGNOSIS: 1. Malfunctioning PermCath catheter. 2. End-stage renal disease on hemodialysis. 3. Liver disease. 4. COPD. 5. Atrial fibrillation. 6. Pacemaker in place. 7. Hypertension. OPERATION: 1. Superior vena cava angiogram. 2. Insertion of new PermCath catheter via old permacatheter site. 3. Removal of old PermCath catheter. SURGEON: SHANNAN ORONA RECYCLING ATTENDANT: None. ANESTHESIA: Moderate Sedation TISSUE REMOVED OR ALTERED: Not applicable. COMPLICATIONS: None. ESTIMATED BLOOD LOSS: 5 mL. INTRAOPERATIVE FINDINGS: Open existing PermCath catheter. This catheter was transected and replaced with a 7 Peruvian introducer. A superior vena cava angiogram was performed through this catheter, showing a wide open superior vena cava transiting into the right atrium. The angle of the single ventricular lead is noted to be just about in the middle of the atrial pool and the replacing permacatheter was placed with the tip in this vicinity. The right atrium is a bit on the small side. Completion angiogram demonstrated smooth flow of contrast through the right atrium, ventricle and pulmonary outflow tract. No apparent dysfunction on final x-ray. PROCEDURE: After obtaining informed consent, the patient was taken to the [Ob/Gyn] and positioned supine. The [right neck] and chest were prepared with chlorhexidine and draped out with sterile linen. After the " universal timeout", in which it was verified that the patient continued to receive antibiotic, the procedure commenced. . Access into the [right internal jugular] vein was obtained by cut down after local anesthesia at the previous neck incision site. The existing catheter was transected at the proximal portion removed over the Glidewire and discarded. This was followed by introduction of a 0.035 Glidewire the tip of which was placed down into the inferior vena cava . A 7 Peruvian introducer was no placed over the Glidewire and used to perform a superior vena cava angiogram. A 23 cm long [split catheter] was now positioned over the chest and an exit site marked and locally anesthetized ,the catheter was placed between the 2 incisions. Proximally, the catheter was now positioned using a peel-away sheath, after dilation. Easy ingress of heparinized solution and egress of blood obtained through both ports. A completion angiogram was done by injecting contrast. The findings were as dictated. The neck incision was now closed using interrupted 3-0 PDS to the subcutaneous tissues, the catheter was anchored at the exit site using 3-0 PDS. A Biopatch device was now placed adjacent to the catheter. Dressings were applied and the procedure concluded. At this point the remaining portion, of the permacatheter distally was removed by injecting local anesthesia and dissecting the cuff away from the surrounding tissues. Dressings were applied. Exposure time: [0. 6 minutes]. Exposure: [31.81 cGy] per centimeters squared. Contrast amount: [5 mL] of Xcalap-[id number] low osmolality. Copies of the dictated operative report for Dr. Sahnnan Davis MD.concluded. Copies of the dictated operative report for Dr. Shannan Davis MD.
[2018-06-18 15:42] VITALS: BP 152/82
--- NOTE | 2018-06-19 08:36 | RADIOLOGY REPORT (SQ) ---
EXAM DESCRIPTION: TUNNELED LINE REPLACEMENT COMPLETED DATE/TIME: 06/19/2018 8:01 am REASON FOR STUDY: VASCULAR ACCESS N18.6 END STAGE RENAL DISEASE COMPARISON: None. FLUOROSCOPY TIME: 0.6 MINUTES 29 digital radiographic images saved to PACS. TECHNIQUE: Intra-operative images acquired during surgical procedure to evaluate progress. NUMBER OF IMAGES: 29 digital radiographic images LIMITATIONS: None. FINDINGS: Intra procedural imaging and fluoro during placement of a right-sided central venous dialy sis catheter with the tip in the right atrium. Please see the operative report further details IMPRESSION: Intra procedural imaging and fluoro COMMENT: Quality ID [id number]: Final reports for procedures using fluoroscopy that document radiation exp osure indices, or exposure time and number of fluorographic images (if radiation exposure indices are not available) Please consult full operative report of the attending physician for description of the procedure. TECHNICAL DOCUMENTATION: JOB ID: [id number] [employer]- All Rights Reserved Reading location - IP/workstation name: [email or web address]
== END 2018-06-18 15:40 | disposition home or self-care (01) ==
LOC: CCL 09:20
PROVIDERS: ATTEND Surgery
DX: T82.41XA Breakdown (mechanical) of vascular dialysis catheter, initial encounter (principal); Y82.8 Other medical devices associated with adverse incidents; I12.0 Hypertensive chronic kidney disease with stage 5 chronic kidney disease or end stage renal disease; N18.6 End stage renal disease; Z99.2 Dependence on renal dialysis; K76.9 Liver disease, unspecified; J44.9 Chronic obstructive pulmonary disease, unspecified; I48.91 Unspecified atrial fibrillation; Z79.01 Long term (current) use of anticoagulants
CPT/HCPCS: 36415; 85027; 85610; 85730; 80048; 36581; 76937; 77001; C1713; C1752; C1769; J2250; J3490 ×2; J0690; A9270 ×2; J3010; J1644

== ENCOUNTER → 2018-12-16 | Outpatient (CLI) | payer MEDICARE, BC | LOC: OD 09:17 | PROVIDERS: ATTEND Internal Medicine Nephrology | DX: I95.9 Hypotension, unspecified (principal) | CPT/HCPCS: 36415; 82533 ==

== ENCOUNTER → 2018-12-16 | Outpatient (CLI) | payer MEDICARE, BC ==
--- NOTE | 2018-12-16 10:02 | RADIOLOGY REPORT (SQ) ---
EXAM DESCRIPTION: CHEST PA/LATERAL COMPLETED DATE/TIME: 12/16/2018 9:41 am REASON FOR STUDY: DYSPNEA, UNSPECIFIED,SOB COMPARISON: 06/01/2018 EXAM PARAMETERS: NUMBER OF VIEWS: two views TECHNIQUE: Digital Frontal and Lateral radiographic views of the chest acquired. RADIATION DOSE: NA LIMITATIONS: none FINDINGS: LUNGS AND PLEURA: Stable chronic interstitial changes without focal airspace disease, pleu ral effusion or pneumothorax. Stable blunting of the bilateral costophrenic angles, likely scarring. No large effusion MEDIASTINUM AND HILAR STRUCTURES: No masses or contour abnormalities. HEART AND VASCULAR STRUCTURES: Borderline enlarged cardiac silhouette, stable. BONES: No acute findings. Cancellous screw overlies left shoulder. Unchanged mild anterior wedging at the thoracolumbar junction HARDWARE: Right internal jugular central venous catheter tip at cavoatrial junction. Left-sided card iac pacer lead overlies right atrium. OTHER: No other significant finding. IMPRESSION: Stable emphysematous changes without evidence of acute cardiopulmonary process. TECHNICAL DOCUMENTATION: JOB ID: [id number] [employer]- All Rights Reserved Reading location - IP/workstation name: [email or web address]
[2018-12-16 10:09] LABS: CHOLESTEROL 154.33 mg/dL (0-200); TRIGLYCERIDES 154 mg/dL (<150)
[2018-12-16 10:20] LABS: DIRECT LDL 76 mg/dL (<100)
[2018-12-16 10:22] LABS: VLDL CHOLESTEROL 30.8 mg/dL (10-31)
== END ==
LOC: OD 09:14
PROVIDERS: ATTEND Internal Medicine
DX: N18.3 Chronic kidney disease, stage 3 (moderate) (principal); I48.0 Paroxysmal atrial fibrillation; R06.00 Dyspnea, unspecified; R06.02 Shortness of breath; Z79.899 Other long term (current) drug therapy
CPT/HCPCS: 36415; 71046; 80061

== ENCOUNTER → 2019-03-01 | Outpatient (CLI) | payer MEDICARE, BC | LOC: OD 09:38 | PROVIDERS: ATTEND Physician Assistant Medical | DX: C22.0 Liver cell carcinoma (principal); R18.8 Other ascites; R53.83 Other fatigue | CPT/HCPCS: 36415; 82140 ==

== ENCOUNTER 2020-02-26 16:34 | Emergency (ER) | payer MEDICARE, BC ==
--- NOTE | 2020-02-26 16:42 | ER Document Report ---
ED Medical Screen (RME) - General Chief Complaint: S/S of Possible Stroke Stated Complaint: POSSIBLE STROKE Time Seen by Provider: 02/26/20 16:35 Primary Care Provider: ALBERT CHAUDHARY PA-C [Primary Care Provider] - Follow up as needed TRAVEL OUTSIDE OF THE [place] IN LAST 30 DAYS: No - HPI Notes: 02/26/20 16:38 I was called into the lobby by the nurse to evaluate patient for concerns of stroke like symptoms. 84-year-old male with a history of chronic renal disease who is on dialysis, history of liver malignancy, hypertensive, A. fib with a pacemaker presents to the emergency room with his family for concerns of recent confusion, garbled speech that started last night. Patient was diagnosed yesterday with herpes zoster on the face and was started on acyclovir, he was given 2 tablets, states last night the patient complained that he had lucid dreams with hallucinations. The family thought maybe this was related to the medication so they brought him to dialysis today, after dialysis patients started with having garbled speech with some confusion. His son states that he is typically neurologically intact. When asked the patient what year it is he was unable to tell me, when asked what the president is patient gave garbled response, unable to say where he is. Son denies him being on any anticoagulants I have greeted and performed a rapid initial assessment of this patient. A comprehensive ED assessment and evaluation of the patient, analysis of test results and completion of the medical decision making process will be conducted by additional ED providers. PHYSICAL EXAMINATION: GENERAL: Chronically ill malnourished and in no acute distress. CV: s1, s2 regular LUNGS: No respiratory distress Musculoskeletal: Normal range of motion NEUROLOGICAL: Patient in wheelchair. Having intermittent garbled speech. Face symmetrical. Unable to follow commands - Related Data Allergies/Adverse Reactions: albuterol Allergy (Severe, Verified 06/18/18 09:40) shock Past Medical History - Past Medical History Cardiac Medical History: Reports: Hx Atrial Fibrillation, Hx Coronary Artery Disease, Hx Hypertension Denies: Hx Heart Attack Pulmonary Medical History: Reports: Hx COPD, Hx Pneumonia - as a child Denies: Hx Asthma, Hx Bronchitis Neurological Medical History: Denies: Hx Cerebrovascular Accident, Hx Seizures Renal/ Medical History: Denies: Hx Peritoneal Dialysis Musculoskeltal Medical History: Reports Hx Arthritis Psychiatric Medical History: Reports: Hx Depression Past Surgical History: Reports: Hx Appendectomy, Hx Orthopedic Surgery - left shoulder pin placed, left knee surgery, Hx Pacemaker - Immunizations Hx Diphtheria, Pertussis, Tetanus Vaccination: No Doctor's Discharge - Discharge Referrals: ALBERT CHAUDHARY PA-C [Primary Care Provider] - Follow up as needed
--- NOTE | 2020-02-26 17:09 | RADIOLOGY REPORT (SQ) ---
EXAM DESCRIPTION: CHEST SINGLE VIEW IMAGES COMPLETED DATE/TIME: 02/26/2020 3:52 pm REASON FOR STUDY: confusion, AMS COMPARISON: 12/16/2018. EXAM PARAMETERS: NUMBER OF VIEWS: One view. TECHNIQUE: Single frontal radiographic view of the chest acquired. RADIATION DOSE: NA LIMITATIONS: None. FINDINGS: LUNGS AND PLEURA: Lungs are hyperinflated. Pleural and parenchymal scarring in the left l leatha base is stable. No focal consolidation. No pneumothorax. MEDIASTINUM AND HILAR STRUCTURES: No masses. Contour normal. HEART AND VASCULAR STRUCTURES: Heart normal in size. Normal vasculature. BONES: No acute findings. HARDWARE: Large-bore central venous catheter with tip in the right atrium is unchanged. Left infracl avicular pacemaker with intact lead wire. OTHER: No other significant finding. IMPRESSION: No significant interval change. No acute cardiopulmonary disease. Hyperinflated lungs which can be seen with obstructive lung disease. TECHNICAL DOCUMENTATION: JOB ID: [id number] 2010 [employer]- All Rights Reserved Reading location - IP/workstation name: [email or web address]
--- NOTE | 2020-02-26 17:10 | ER Document Report ---
ED General - General Chief Complaint: S/S of Possible Stroke Stated Complaint: POSSIBLE STROKE Time Seen by Provider: 02/26/20 16:35 Primary Care Provider: ALBERT CHAUDHARY PA-C [ALLIED HEALTH PROFESSIONAL] - Follow up as needed Mode of Arrival: Wheelchair Information source: Patient Notes: ED Medical Screen (RME) - General Chief Complaint: S/S of Possible Stroke Stated Complaint: POSSIBLE STROKE Time Seen by Provider: 02/26/20 16:35 Primary Care Provider: ALBERT CHAUDHARY PA-C [Primary Care Provider] - Follow up as needed TRAVEL OUTSIDE OF THE [place] IN LAST 30 DAYS: No - HPI Notes: 02/26/20 16:38 I was called into the lobby by the nurse to evaluate patient for concerns of stroke like symptoms. 84-year-old male with a history of chronic renal disease who is on dialysis, history of liver malignancy, hypertensive, A. fib with a pacemaker presents to the emergency room with his family for concerns of recent confusion, garbled speech that started last night. Patient was diagnosed yesterday with herpes zoster on the face and was started on acyclovir, he was given 2 tablets, states last night the patient complained that he had lucid dreams with hallucinations. The family thought maybe this was related to the medication so they brought him to dialysis today, after dialysis patients started with having garbled speech with some confusion. His son states that he is typically neurologically intact. When asked the patient what year it is he was unable to tell me, when asked what the president is patient gave garbled response, unable to say where he is. Son denies him being on any anticoagulants I have greeted and performed a rapid initial assessment of this patient. A comprehensive ED assessment and evaluation of the patient, analysis of test results and completion of the medical decision making process will be conducted by additional ED providers. PHYSICAL EXAMINATION: GENERAL: Chronically ill malnourished and in no acute distress. CV: s1, s2 regular LUNGS: No respiratory distress Musculoskeletal: Normal range of motion NEUROLOGICAL: Patient in wheelchair. Having intermittent garbled speech. Face symmetrical. Unable to follow commands my notes 84-year-old male arrives with his son Hudson with chief complaint of feeling dizzy and slurred speech and very drowsy dreaming 3 porno dreams last night and waking a day very weak unable to use his usual walker. He has to use a wheelchair today. He denies any nausea vomiting abdominal cramps or headaches or diarrhea or myalgias. He saw his trauma counsellor in [place] yesterday who placed him on Valtrex 1 g twice daily. He took his first dose yesterday evenin g. For 1 week now he has had dried lesions along his right forehead and along his right lateral nose of blistering that became quickly into a scabbing skin lesions. He had a shot for shingles around 5 to 10 years ago. Patient has a history of facial skin with actinic keratosis and seborrheic keratosis. 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 He had his dialysis today and his dialysis nurse told him to come to the ER. He receives his medications from [facility] on [address]. TRAVEL OUTSIDE OF THE [place] IN LAST 30 DAYS: No - HPI Onset: This morning Onset/Duration: Sudden Quality of pain: Achy Severity: Mild Pain Level: 1 Associated symptoms: Weakness Exacerbated by: Movement, Walking Relieved by: Remaining still Similar symptoms previously: No Recently seen / treated by doctor: No - Related Data Allergies/Adverse Reactions: albuterol Allergy (Severe, Verified 06/18/18 09:40) shock Past Medical History - General Information source: Patient - Social History Smoking Status: Former Smoker Cigarette use (# per day): No Chew tobacco use (# tins/day): No Smoking Education Provided: No Frequency of alcohol use: None Drug Abuse: None Lives with: Family Family History: Reviewed & Not Pertinent Patient has suicidal ideation: No Patient has homicidal ideation: No - Past Medical History Cardiac Medical History: Reports: Hx Atrial Fibrillation, Hx Coronary Artery Disease, Hx Hypertension Denies: Hx Heart Attack Pulmonary Medical History: Reports: Hx COPD, Hx Pneumonia - as a child Denies: Hx Asthma, Hx Bronchitis Neurological Medical History: Denies: Hx Cerebrovascular Accident, Hx Seizures Renal/ Medical History: Denies: Hx Peritoneal Dialysis Musculoskeletal Medical History: Reports Hx Arthritis Psychiatric Medical History: Reports: Hx Depression Past Surgical History: Reports: Hx Appendectomy, Hx Orthopedic Surgery - left shoulder pin placed, left knee surgery, Hx Pacemaker - Immunizations Hx Diphtheria, Pertussis, Tetanus Vaccination: No Hx Pneumococcal Vaccination: 04/20/18 Review of Systems - Review of Systems Constitutional: See HPI, Recent illness EENT: See HPI, Blurred vision Cardiovascular: No symptoms reported Respiratory: No symptoms reported Gastrointestinal: No symptoms reported Genitourinary: No symptoms reported Male Genitourinary: No symptoms reported Musculoskeletal: No symptoms reported Skin: No symptoms reported Hematologic/Lymphatic: No symptoms reported Neurological/Psychological: No symptoms reported Physical Exam - Vital signs Vitals: Pulse Resp BP Pulse Ox 83 14 111/59 L 98 02/26/20 16:54 02/26/20 16:54 02/26/20 16:54 02/26/20 16:54 Interpretation: Normal - General General appearance: Alert - HEENT Head: Normocephalic, Atraumatic Eyes: Normal Pupils: PERRL Pharynx: Normal Neck: Normal - Respiratory Respiratory status: No respiratory distress Chest status: Nontender Breath sounds: Normal Chest palpation: Normal - Cardiovascular Rhythm: Regular Heart sounds: Normal auscultation Murmur: No - Abdominal Inspection: Normal Distension: No distension Bowel sounds: Normal Tenderness: Nontender Organomegaly: No organomegaly - Rectal Prostate: Other - deferred - Genitourinary Scrotum: Other - deferred - Back Back: Normal - Extremities General upper extremity: Normal inspection General lower extremity: Normal inspection - Neurological Neuro grossly intact: Yes Cognition: Normal Orientation: AAOx4 Ilia Coma Scale Eye Opening: Spontaneous Ilia Coma Scale Verbal: Oriented Ilia Coma Scale Motor: Obeys Commands Ilia Coma Scale Total: 15 Speech: Normal Motor strength normal: LUE, RUE, LLE, RLE Sensory: Normal - Psychological Associated symptoms: Normal affect - Skin Skin Temperature: Warm Skin Moisture: Dry Course - Vital Signs Vital signs: Temp Pulse Resp BP Pulse Ox 83 14 111/59 L 98 02/26/20 16:54 02/26/20 16:54 02/26/20 16:54 02/26/20 16:54 - Laboratory Result Diagrams: 02/26/20 17:07 02/26/20 17:07 Laboratory results interpreted by me: 02/26/20 02/26/20 02/26/20 17:00 17:07 17:07 WBC 3.0 L RBC 2.93 L Hgb 10.5 L Hct 30.6 L MCV 105 H MCH 35.6 H RDW 15.8 H Plt Count 96 L Absolute Lymphs (auto) 0.4 L Sodium 135.5 L Chloride 97 L Creatinine 3.00 H Est GFR ( Amer) 24 L Est GFR (MDRD) Non-Af 20 L Glucose 128 H POC Glucose 145 H AST 65 H Alkaline Phosphatase 171 H - Diagnostic Test Radiology reviewed: Reports reviewed Discharge - Discharge Clinical Impression: edge hester shingles, Weak, Pernicious anemia Chronic kidney disease Qualifiers: Chronic kidney disease stage: unspecified stage Qualified Code(s): N18.9 - Chronic kidney disease, unspecified Medication adverse effect Qualifiers: Encounter type: initial encounter Qualified Code(s): T50.905A - Adverse effect of unspecified drugs, medicaments and biological substances, initial encounter Condition: Good Disposition: HOME, SELF-CARE Additional Instructions: Follow-up with personal doctor return to ER as needed encourage fluids try to avoid any excessive movements today but encourage fluids. Return to ER if sy mptoms persist over 24 to 36 hours. Referrals: ALBERT CHAUDHARY PA-C [ALLIED HEALTH PROFESSIONAL] - Follow up as needed
--- NOTE | 2020-02-26 17:11 | RADIOLOGY REPORT (SQ) ---
EXAM DESCRIPTION: CT HEAD WITHOUT IMAGES COMPLETED DATE/TIME: 02/26/2020 3:50 pm REASON FOR STUDY: Garbled speech, confusion started last night COMPARISON: CT head, 07/04/2016 TECHNIQUE: Axial images acquired through the brain without intravenous contrast. Images reviewed wi th bone, brain and subdural windows. Additional sagittal and coronal reconstructions were generated. Images stored on PACS. All CT scanners at this facility use dose modulation, iterative reconstruction, and/or weight based d osing when appropriate to reduce radiation dose to as low as reasonably achievable (ALARA). [facility]: Dose Right [facility]: CareDose [facility]: Dose Right [facility]: Teradose 4D [facility]: [employer] RADIATION DOSE: CT Rad equipment meets quality standard of care and radiation dose reduction techniq ues were employed. CTDIvol: 53.2 mGy. DLP: 1044 mGy-cm. mGy. LIMITATIONS: None. FINDINGS: VENTRICLES: There is moderate prominence of the ventricles and sulci, consistent with mode rate diffuse cerebral and cerebellar atrophy. CEREBRUM: No masses. No hemorrhage. No midline shift. No evidence for acute infarction. Normal gra y-white matter differentiation. Mild patchy periventricular and deep white matter hypodense attenuat ion consistent with mild chronic small vessel ischemic change. There is intracranial atherosclerosis . CEREBELLUM: No masses. No hemorrhage. No alteration of density. No evidence for acute infarction. EXTRAAXIAL SPACES: No fluid collections. No masses. ORBITS AND GLOBE: No intra- or extraconal masses. Normal contour of globe without masses. CALVARIUM: No fracture. PARANASAL SINUSES: No fluid or mucosal thickening. SOFT TISSUES: No mass or hematoma. OTHER: No other significant finding. IMPRESSION: 1. No acute intracranial hemorrhage, mass, or evidence of acute territorial infarct. 2. My of chronic small vessel ischemic change and intracranial atherosclerosis, stable. 3. Moderate cerebral and cerebellar atrophy, not significantly changed. EVIDENCE OF ACUTE STROKE: NO. COMMENT: Quality ID # [id number]: Final reports with documentation of one or more dose reduction techniques (e.g., Automated exposure control, adjustment of the mA and/or kV according to patient size, use of iterative reconstruction technique) TECHNICAL DOCUMENTATION: JOB ID: [id number] 2010 [employer]- All Rights Reserved Reading location - IP/workstation name: [email or web address]
[2020-02-26 17:23] LABS: ABSOLUTE LYMPHOCYTES (AUTO) 0.4 10^3/uL (0.5-4.7); ABSOLUTE MONOCYTES (AUTO) 0.3 10^3/uL (0.1-1.4); ABSOLUTE NEUT (AUTO) 2.2 10^3/uL (1.7-8.2); BASOPHILS % (AUTO) 1.1 % (0-2); EOSINOPHILS % (AUTO) 0.6 % (0-6); HEMATOCRIT 30.6 % (37.9-51.0); HEMOGLOBIN 10.5 g/dL (13.5-17.0); LYMPHOCYTES % (AUTO) 14.1 % (13-45); MEAN CORPUSCULAR HEMOGLOBIN 35.6 pg (27.0-33.4); MEAN CORPUSCULAR HGB CONC 34.1 g/dL (32.0-36.0); MEAN CORPUSCULAR VOLUME 105 fl (80-97); MONOCYTES % (AUTO) 10.8 % (3-13); RED BLOOD COUNT 2.93 10^6/uL (4.35-5.55); RED CELL DISTRIBUTION WIDTH 15.8 % (11.5-14.0); SEGMENTED NEUTROPHILS % (AUTO) 73.4 % (42-78); TOTAL CELLS COUNTED % (AUTO) 100 %
[2020-02-26 17:27] LABS: INTERNATIONAL RATION (INR) 0.96
[2020-02-26 17:28] LABS: PARTIAL THROMBOPLASTIN TIME 31.9 SEC (23.5-35.8)
[2020-02-26 17:33] LABS: ALKALINE PHOSPHATASE 171 U/L (38-126); ANION GAP 12 (5-19); ASPARTATE AMINO TRANSFERASE 65 U/L (17-59); BILIRUBIN,DIRECT 0.1 mg/dL (0.0-0.4); BILIRUBIN,TOTAL 0.7 mg/dL (0.2-1.3); BLOOD UREA NITROGEN 16 mg/dL (7-20); CALCIUM 8.7 mg/dL (8.4-10.2); CARBON DIOXIDE 27 mmol/L (22-30); CHLORIDE 97 mmol/L (98-107); GLUCOSE 128 mg/dL (75-110); POTASSIUM 3.9 mmol/L (3.6-5.0); TOTAL PROTEIN 7.8 g/dL (6.3-8.2)
[2020-02-26 17:50] LABS: PLATELET COUNT 96 10^3/uL (150-450)
[2020-02-26 19:32] VITALS: BP 122/68
[2020-02-26 19:48] LABS: FREE T4 (FREE THYROXINE) 0.11 ng/dL (0.78-2.19)
--- NOTE | 2020-02-26 19:52 | EKG REPORT ---
SEVERITY:- ABNORMAL ECG - ATRIAL FIBRILLATION INCOMPLETE LEFT BUNDLE BRANCH BLOCK ANTERIOR Q WAVES, POSSIBLY DUE TO ILBBB : Confirmed by: Michi Gregg MD 26-Feb-2020 19:51:25
[2020-02-26 20:02] LABS: THYROID STIMULATING HORMONE 87.9 uIU/mL (0.47-4.68)
== END 2020-02-26 19:32 | disposition home or self-care (01) ==
LOC: ER 16:34
DX: B02.21 Postherpetic geniculate ganglionitis (principal); D51.0 Vitamin B12 deficiency anemia due to intrinsic factor deficiency; R53.1 Weakness; I12.9 Hypertensive chronic kidney disease with stage 1 through stage 4 chronic kidney disease, or unspecified chronic kidney disease; N18.9 Chronic kidney disease, unspecified; T50.905A Adverse effect of unspecified drugs, medicaments and biological substances, initial encounter; R42 Dizziness and giddiness; R47.81 Slurred speech; I48.91 Unspecified atrial fibrillation; Z99.2 Dependence on renal dialysis; Z95.0 Presence of cardiac pacemaker; Z85.05 Personal history of malignant neoplasm of liver
CPT/HCPCS: 36415; 70450; 71045; 80053; 82962; 84439; 84443; 85025; 85610; 85730; 93005; 93010; 99285

== ENCOUNTER → 2020-05-01 | Outpatient (CLI) | payer MEDICARE, BC ==
--- NOTE | 2020-05-01 10:44 | RADIOLOGY REPORT (SQ) ---
EXAM DESCRIPTION: CT CHEST WITH IMAGES COMPLETED DATE/TIME: 05/01/2020 10:03 am REASON FOR STUDY: C22.0 LIVER CELL CARCINOMA C22.0 LIVER CELL CARCINOMA COMPARISON: None. TECHNIQUE: CT scan of the chest performed using helical scanning technique with dynamic intravenous contrast injection. Images reviewed with lung, soft tissue and bone windows. Reconstructed coronal and sagittal MPR and MIP images reviewed. All images stored on PACS. All CT scanners at this facility use dose modulation, iterative reconstruction, and/or weight based d osing when appropriate to reduce radiation dose to as low as reasonably achievable (ALARA). [facility]: Dose Right [facility]: CareDose [facility]: Dose Right [facility]: Teradose 4D [facility]: [employer]-OP CONTRAST TYPE AND DOSE: contrast/concentration: Isovue 350.00 mmol/ml; Total Contrast Delivered: 80. 0 ml; Total Saline Delivered: 40.0 ml RENAL FUNCTION: Hemodialysis. RADIATION DOSE: . LIMITATIONS: None. FINDINGS: LUNGS AND PLEURA: Moderate centrilobular and paraseptal emphysema. Subsegmental honeycomb ing in the lower lobes. No suspicious nodules. HILAR AND MEDIASTINAL STRUCTURES: No identified masses or abnormal nodes. HEART AND VASCULAR STRUCTURES: No aneurysm or dissection. No central pulmonary emboli. No pericardi al effusion. HARDWARE: None in the chest. UPPER ABDOMEN: See separate report of the CT of the abdomen. THYROID AND OTHER SOFT TISSUES: No masses. No adenopathy. BONES: No significant finding. OTHER: Left dual lead pacemaker. Right-sided central line tip cavoatrial junction. IMPRESSION: Emphysema and mild pulmonary fibrosis. No evidence of metastatic disease. TECHNICAL DOCUMENTATION: JOB ID: [id number] Quality ID # [id number]: Final reports with documentation of one or more dose reduction techniques (e.g., Au tomated exposure control, adjustment of the mA and/or kV according to patient size, use of iterative reconstruction technique) 2010 [employer]- All Rights Reserved Reading location - IP/workstation name: [email or web address]
--- NOTE | 2020-05-01 11:22 | RADIOLOGY REPORT (SQ) ---
EXAM DESCRIPTION: CT ABD/PELVIS WITH IV ONLY IMAGES COMPLETED DATE/TIME: 05/01/2020 10:03 am REASON FOR STUDY: C22.0 LIVER CELL CARCINOMA C22.0 LIVER CELL CARCINOMA COMPARISON: None. TECHNIQUE: CT scan of the abdomen and pelvis performed using helical scanning technique with dynamic intravenous contrast injection. No oral contrast. Images reviewed with lung, soft tissue, and bone windows. Reconstructed coronal and sagittal MPR images reviewed. Delayed images for evaluation of the urinary system also acquired. All images stored on PACS. All CT scanners at this facility use dose modulation, iterative reconstruction, and/or weight based d osing when appropriate to reduce radiation dose to as low as reasonably achievable (ALARA). [facility]: Dose Right [facility]: CareDose [facility]: Dose Right [facility]: Teradose 4D [facility]: [employer] RENAL FUNCTION: On hemodialysis. RADIATION DOSE: CT Rad equipment meets quality standard of care and radiation dose reduction techniq ues were employed. CTDIvol: 17.3 - 22.8 mGy. DLP: 2993 mGy-cm.. LIMITATIONS: None. FINDINGS: LOWER CHEST: See separate report of the CT of the chest. LIVER: Multiple heterogeneous masses, the largest near the gallbladder fossa 7.5 x 7.5 cm. Sub capsu lar nodularity. No dilated ducts. SPLEEN: Normal size. No focal lesions. PANCREAS: No masses. No significant calcifications. No adjacent inflammation or peripancreatic fluid collections. Pancreatic duct not dilated. GALLBLADDER: Gallstones. No inflammatory changes to suggest cholecystitis. ADRENAL GLANDS: No significant masses or asymmetry. RIGHT KIDNEY AND URETER: Atrophy. Lower pole cyst. No solid masses. No significant calcifications . No hydronephrosis or hydroureter. LEFT KIDNEY AND URETER: Atrophy. Multiple cysts. No solid masses. No significant calcifications. No hydronephrosis or hydroureter. AORTA AND VESSELS: Mild dilatation of the celiac artery 15 mm just distal to the origin. RETROPERITONEUM: No retroperitoneal adenopathy, hemorrhage or masses. BOWEL AND PERITONEAL CAVITY: Diffuse diverticulosis. Small amount of ascites. APPENDIX: Not visualized. PELVIS: No mass. Small amount of free fluid. Normal bladder. ABDOMINAL WALL: No masses. No hernias. BONES: Nothing acute. OTHER: No other significant finding. IMPRESSION: 1. Multiple liver masses consistent with hepatocellular carcinoma or metastatic disease. There is a background of cirrhosis. 2. Small amount of ascites. 3. Cholelithiasis. 4. Chronic renal insufficiency. TECHNICAL DOCUMENTATION: JOB ID: [id number] Quality ID # [id number]: Final reports with documentation of one or more dose reduction techniques (e.g., Au tomated exposure control, adjustment of the mA and/or kV according to patient size, use of iterative reconstruction technique) 2010 [employer]- All Rights Reserved Reading location - IP/workstation name: [email or web address]
== END ==
LOC: RAD 08:35
PROVIDERS: ATTEND Nurse Practitioner Family
DX: C22.0 Liver cell carcinoma (principal); K74.60 Unspecified cirrhosis of liver; R18.8 Other ascites; N18.9 Chronic kidney disease, unspecified; K80.20 Calculus of gallbladder without cholecystitis without obstruction; J43.2 Centrilobular emphysema
CPT/HCPCS: 71260; 74177; 82565